=== PATIENT | female | born 1950 | race Caucasian/White ===

== ENCOUNTER → 2017-10-22 09:37 | Outpatient (CLI) | payer MEDICARE, OTHER, SELFPAY ==
[2017-10-15 11:41] VITALS: TEMP 36.3
[2017-10-22 10:02] LABS: Hematocrit 52.3 % (36-46)
[2017-10-22 11:33] LABS: Zero Check Sebra Scale P
[2017-10-22 11:34] LABS: 585 Gram Check P; Amount Collected in g 585; Dizziness N; Postdiastolic BP 88; Postsystolic BP 127; Prediastolic 88; Presystolic 144; Pulse 56; Site of phlebotomy LAC; Swelling N; Therapeutic Phleb Comment NO COMMENT
== END ==
PROVIDERS: PCP Family Medicine; Visit Provider Internal Medicine Hematology & Oncology
DX: D45 Polycythemia vera (principal)
CPT/HCPCS: 36415; 85014; 85018; 99195

== ENCOUNTER → 2017-10-29 09:48 | Outpatient (CLI) | payer MEDICARE, OTHER, SELFPAY ==
[2017-10-29 10:19] LABS: Add Manual Diff / Slide Review NO; Basophils Percent Auto 0.9 % (0-2); Eosinophils Percent Auto 4.1 % (2-4); Hematocrit 50.5 % (36-46); Hemoglobin 16.7 g/dL (12.0-16.0); Lymphocytes Percent Auto 13.2 % (25-40); Mean Corpuscular HGB Conc 33.1 % (30-36); Mean Corpuscular Hemoglobin 31.2 PG (26-34); Mean Corpuscular Volume 94.2 fL (80-100); Monocytes Percent Auto 3.7 % (3-14); Neutrophils Absolute Auto 8100 /uL (3000-5900); Neutrophils Percent Auto 78.1 % (50-75); Platelet Count 702 X10^3/uL (150-400); Red Blood Cell Count 5.36 X10^6/uL (4.0-5.2); Red Cell Distribution Width 16.4 % (11.6-14.8); White Blood Cell Count 10.4 X10^3/uL (4.5-11.0)
[2017-10-29 11:13] LABS: 585 Gram Check P; Amount Collected in g 585; Dizziness NO; Postdiastolic BP 72; Postsystolic BP 98; Prediastolic 75; Presystolic 120; Pulse 64; Site of phlebotomy RAC; Swelling NO; Therapeutic Phleb Comment NO COMMENT; Zero Check Sebra Scale P
[2017-10-29 11:51] LABS: Platelet Morphology Comment OCC GIANT PLATELETS
== END ==
PROVIDERS: PCP Family Medicine; Visit Provider Internal Medicine Hematology & Oncology
DX: D45 Polycythemia vera (principal)
CPT/HCPCS: 36415; 85025; 99195

== ENCOUNTER → 2017-11-12 09:31 | Outpatient (CLI) | payer MEDICARE, OTHER, SELFPAY ==
[2017-11-12 09:54] LABS: Add Manual Diff / Slide Review NO; Basophils Percent Auto 0.7 % (0-2); Eosinophils Percent Auto 4.3 % (2-4); Hematocrit 50.6 % (36-46); Hemoglobin 16.3 g/dL (12.0-16.0); Lymphocytes Percent Auto 13.3 % (25-40); Mean Corpuscular HGB Conc 32.3 % (30-36); Mean Corpuscular Hemoglobin 29.3 PG (26-34); Mean Corpuscular Volume 90.6 fL (80-100); Monocytes Percent Auto 4.4 % (3-14); Neutrophils Absolute Auto 8200 /uL (3000-5900); Neutrophils Percent Auto 77.3 % (50-75); Platelet Count 709 X10^3/uL (150-400); Red Blood Cell Count 5.58 X10^6/uL (4.0-5.2); Red Cell Distribution Width 18.6 % (11.6-14.8); White Blood Cell Count 10.6 X10^3/uL (4.5-11.0)
[2017-11-12 10:51] LABS: 585 Gram Check P; Zero Check Sebra Scale P
[2017-11-12 10:52] LABS: Amount Collected in g 585; Dizziness NO; Postdiastolic BP 86; Postsystolic BP 135; Prediastolic 83; Presystolic 123; Pulse 72; Site of phlebotomy LAC; Swelling NO; Therapeutic Phleb Comment NO COMMENT
[2017-11-12 11:40] LABS: Alanine Aminotransferase 33 IU/L (9-52); Albumin 4.3 g/dL (3.5-5.0); Albumin Globulin Ratio 1.8 (1.0-2.8); Alkaline Phosphatase 104 U/L (38-126); Aspartate Aminotransferase 34 IU/L (14-36); BUN Creatinine Ratio 18.8 (6-22); Bilirubin Total 0.7 mg/dL (0.2-1.3); Blood Urea Nitrogen 15 mg/dL (7-17); Carbon Dioxide 29 mmol/L (22-32); Chloride 98 mmol/L (98-107); Estimated Glomerular Filt Rate > 60.0 mL/min (>60); Globulin 2.4 g/dL (1.7-4.1); Glucose 84 mg/dL (80-110); HEMOLYSIS 16 (0-50); Lactate Dehydrogenase 693 U/L (313-618); Sodium 138 mmol/L (137-145); Total Protein 6.7 g/dL (6.3-8.2)
[2017-11-12 11:58] LABS: Potassium 5.7 mmol/L (3.4-5.1)
== END ==
PROVIDERS: PCP Family Medicine; Visit Provider Internal Medicine Hematology & Oncology
DX: D75.1 Secondary polycythemia (principal)
CPT/HCPCS: 36415; 80053; 83615; 85025; 99195

== ENCOUNTER → 2017-11-27 09:35 | Outpatient (CLI) | payer MEDICARE, OTHER, SELFPAY ==
[2017-11-27 10:06] LABS: Add Manual Diff / Slide Review NO; Basophils Percent Auto 1.4 % (0-2); Eosinophils Percent Auto 4.9 % (2-4); Hematocrit 50.9 % (36-46); Hemoglobin 15.8 g/dL (12.0-16.0); Lymphocytes Percent Auto 13.6 % (25-40); Mean Corpuscular HGB Conc 31.1 % (30-36); Mean Corpuscular Hemoglobin 27.4 PG (26-34); Monocytes Percent Auto 3.9 % (3-14); Neutrophils Absolute Auto 8900 /uL (3000-5900); Neutrophils Percent Auto 76.2 % (50-75); Platelet Count 811 X10^3/uL (150-400); Red Blood Cell Count 5.79 X10^6/uL (4.0-5.2); Red Cell Distribution Width 20.2 % (11.6-14.8); White Blood Cell Count 11.6 X10^3/uL (4.5-11.0)
[2017-11-27 10:32] LABS: Anisocytosis 2+; Hypochromasia 2+
[2017-11-27 10:44] LABS: 585 Gram Check PASS; Zero Check Sebra Scale PASS
[2017-11-27 10:45] LABS: Amount Collected in g 585 GRAM; Dizziness NO; Postdiastolic BP 68; Postsystolic BP 109; Prediastolic 74; Presystolic 112; Pulse 70; Site of phlebotomy RAC; Swelling NO; Therapeutic Phleb Comment NO COMMENT
--- NOTE | 2017-12-05 10:44 | ONC.NAV ---
Description: Railroad Activity: Completed a medical priority boarding pass for pt, emailed her the patient copy.
== END ==
PROVIDERS: PCP Family Medicine; Visit Provider Internal Medicine Hematology & Oncology
DX: D45 Polycythemia vera (principal)
CPT/HCPCS: 36415; 85025; 99195

== ENCOUNTER → 2017-12-10 09:24 | Outpatient (CLI) | payer MEDICARE, OTHER, SELFPAY ==
[2017-12-10 09:51] LABS: Add Manual Diff / Slide Review NO; Basophils Percent Auto 1.1 % (0-2); Eosinophils Percent Auto 3.7 % (2-4); Hematocrit 46.3 % (36-46); Hemoglobin 14.5 g/dL (12.0-16.0); Lymphocytes Percent Auto 13.8 % (25-40); Mean Corpuscular HGB Conc 31.2 % (30-36); Mean Corpuscular Hemoglobin 26.4 PG (26-34); Mean Corpuscular Volume 84.7 fL (80-100); Monocytes Percent Auto 4.3 % (3-14); Neutrophils Absolute Auto 7500 /uL (3000-5900); Neutrophils Percent Auto 77.1 % (50-75); Platelet Count 455 X10^3/uL (150-400); Red Blood Cell Count 5.47 X10^6/uL (4.0-5.2); Red Cell Distribution Width 21.6 % (11.6-14.8); White Blood Cell Count 9.7 X10^3/uL (4.5-11.0)
[2017-12-10 10:13] LABS: Anisocytosis 2+
[2017-12-10 10:14] LABS: Poikilocytosis 1+
[2017-12-10 10:18] LABS: Alanine Aminotransferase 31 IU/L (9-52); Albumin 4.4 g/dL (3.5-5.0); Albumin Globulin Ratio 1.7 (1.0-2.8); Alkaline Phosphatase 88 U/L (38-126); Aspartate Aminotransferase 32 IU/L (14-36); BUN Creatinine Ratio 18.8 (6-22); Bilirubin Total 0.8 mg/dL (0.2-1.3); Blood Urea Nitrogen 15 mg/dL (7-17); Calcium 9.5 mg/dL (8.4-10.2); Carbon Dioxide 27 mmol/L (22-32); Chloride 102 mmol/L (98-107); Estimated Glomerular Filt Rate > 60.0 mL/min (>60); Globulin 2.6 g/dL (1.7-4.1); Glucose 94 mg/dL (80-110); HEMOLYSIS < 15 (0-50); Potassium 4.5 mmol/L (3.4-5.1); Sodium 138 mmol/L (137-145)
[2017-12-10 10:29] LABS: 585 Gram Check PASS; Amount Collected in g 585 GRAM; Dizziness NO; Postdiastolic BP 78; Postsystolic BP 120; Prediastolic 83; Presystolic 122; Pulse 76; Site of phlebotomy LEFT AC; Swelling NO; Therapeutic Phleb Comment NO COMMENT; Zero Check Sebra Scale PASS
== END ==
PROVIDERS: PCP Family Medicine; Visit Provider Internal Medicine Hematology & Oncology
DX: D75.1 Secondary polycythemia (principal); D45 Polycythemia vera
CPT/HCPCS: 36415; 80053; 83002; 85025; 99195

== ENCOUNTER → 2017-12-24 09:11 | Outpatient (CLI) | payer MEDICARE, OTHER, SELFPAY ==
[2017-12-24 09:47] LABS: Add Manual Diff / Slide Review NO; Basophils Percent Auto 1.9 % (0-2); Eosinophils Percent Auto 3.4 % (2-4); Hematocrit 44.1 % (36-46); Hemoglobin 13.7 g/dL (12.0-16.0); Lymphocytes Percent Auto 13.5 % (25-40); Mean Corpuscular Hemoglobin 25.7 PG (26-34); Monocytes Percent Auto 2.4 % (3-14); Neutrophils Absolute Auto 8100 /uL (3000-5900); Neutrophils Percent Auto 78.8 % (50-75); Platelet Count 305 X10^3/uL (150-400); Red Blood Cell Count 5.31 X10^6/uL (4.0-5.2); Red Cell Distribution Width 21.7 % (11.6-14.8); White Blood Cell Count 10.3 X10^3/uL (4.5-11.0)
[2017-12-24 10:48] LABS: Anisocytosis 2+; Hypochromasia 1+
[2017-12-24 12:24] LABS: 585 Gram Check PASS; Amount Collected in g 585 GRAM; Dizziness NO; Postdiastolic BP 75; Postsystolic BP 117; Prediastolic 88; Presystolic 126; Pulse 75; Site of phlebotomy RIGHT AC; Swelling NO; Therapeutic Phleb Comment NO COMMENT; Zero Check Sebra Scale PASS
== END ==
PROVIDERS: PCP Family Medicine; Visit Provider Internal Medicine Hematology & Oncology
DX: D45 Polycythemia vera (principal)
CPT/HCPCS: 36415; 85025; 99195

== ENCOUNTER → 2018-01-07 09:20 | Outpatient (CLI) | payer MEDICARE, OTHER, SELFPAY ==
[2018-01-07 09:48] LABS: Add Manual Diff / Slide Review NO; Basophils Percent Auto 1.1 % (0-2); Hematocrit 41.5 % (36-46); Hemoglobin 12.9 g/dL (12.0-16.0); Lymphocytes Percent Auto 16.3 % (25-40); Mean Corpuscular HGB Conc 31.2 % (30-36); Mean Corpuscular Hemoglobin 25.6 PG (26-34); Monocytes Percent Auto 4.5 % (3-14); Neutrophils Absolute Auto 7400 /uL (3000-5900); Neutrophils Percent Auto 75.1 % (50-75); Platelet Count 421 X10^3/uL (150-400); Red Blood Cell Count 5.06 X10^6/uL (4.0-5.2); Red Cell Distribution Width 22.1 % (11.6-14.8); White Blood Cell Count 9.9 X10^3/uL (4.5-11.0)
[2018-01-07 10:07] LABS: Anisocytosis 2+
[2018-01-07 11:03] LABS: Alanine Aminotransferase 27 IU/L (9-52); Albumin 4.3 g/dL (3.5-5.0); Albumin Globulin Ratio 1.7 (1.0-2.8); Alkaline Phosphatase 80 U/L (38-126); Aspartate Aminotransferase 28 IU/L (14-36); BUN Creatinine Ratio 16.3 (6-22); Bilirubin Total 0.6 mg/dL (0.2-1.3); Blood Urea Nitrogen 13 mg/dL (7-17); Calcium 9.4 mg/dL (8.4-10.2); Carbon Dioxide 30 mmol/L (22-32); Chloride 101 mmol/L (98-107); Estimated Glomerular Filt Rate > 60.0 mL/min (>60); Globulin 2.6 g/dL (1.7-4.1); Glucose 100 mg/dL (80-110); HEMOLYSIS < 15 (0-50); Lactate Dehydrogenase 424 U/L (313-618); Potassium 4.1 mmol/L (3.4-5.1); Sodium 139 mmol/L (137-145); Total Protein 6.9 g/dL (6.3-8.2)
[2018-01-07 11:38] LABS: Ferritin 7.1 ng/mL (11.1-264)
== END ==
PROVIDERS: PCP Family Medicine; Visit Provider Internal Medicine Hematology & Oncology
DX: D45 Polycythemia vera (principal)
CPT/HCPCS: 36415; 80053; 82728; 83615; 85025

== ENCOUNTER → 2018-01-22 09:24 | Outpatient (CLI) | payer MEDICARE, OTHER, SELFPAY ==
[2018-01-22 09:39] LABS: Add Manual Diff / Slide Review NO; Basophils Percent Auto 1.1 % (0-2); Eosinophils Percent Auto 2.7 % (2-4); Hematocrit 42.2 % (36-46); Hemoglobin 13.3 g/dL (12.0-16.0); Lymphocytes Percent Auto 19.4 % (25-40); Mean Corpuscular HGB Conc 31.6 % (30-36); Mean Corpuscular Hemoglobin 26.2 PG (26-34); Monocytes Percent Auto 5.1 % (3-14); Neutrophils Absolute Auto 5900 /uL (3000-5900); Neutrophils Percent Auto 71.7 % (50-75); Platelet Count 306 X10^3/uL (150-400); Red Blood Cell Count 5.09 X10^6/uL (4.0-5.2); Red Cell Distribution Width 25.7 % (11.6-14.8); White Blood Cell Count 8.3 X10^3/uL (4.5-11.0)
[2018-01-22 10:06] LABS: Anisocytosis 2+
== END ==
PROVIDERS: PCP Family Medicine; Visit Provider Internal Medicine Hematology & Oncology
DX: D45 Polycythemia vera (principal)
CPT/HCPCS: 36415; 85025

== ENCOUNTER → 2018-02-05 09:22 | Outpatient (CLI) | payer MEDICARE, OTHER, SELFPAY ==
[2018-02-05 09:50] LABS: Add Manual Diff / Slide Review NO; Basophils Percent Auto 0.9 % (0-2); Eosinophils Percent Auto 2.9 % (2-4); Hemoglobin 13.7 g/dL (12.0-16.0); Lymphocytes Percent Auto 20.6 % (25-40); Mean Corpuscular HGB Conc 31.9 % (30-36); Mean Corpuscular Hemoglobin 26.5 PG (26-34); Mean Corpuscular Volume 83.2 fL (80-100); Monocytes Percent Auto 4.8 % (3-14); Neutrophils Absolute Auto 4700 /uL (3000-5900); Neutrophils Percent Auto 70.8 % (50-75); Platelet Count 635 X10^3/uL (150-400); Red Blood Cell Count 5.17 X10^6/uL (4.0-5.2); Red Cell Distribution Width 28.3 % (11.6-14.8); White Blood Cell Count 6.6 X10^3/uL (4.5-11.0)
[2018-02-05 10:05] LABS: Alanine Aminotransferase 27 IU/L (9-52); Albumin 4.5 g/dL (3.5-5.0); Albumin Globulin Ratio 1.7 (1.0-2.8); Alkaline Phosphatase 73 U/L (38-126); Aspartate Aminotransferase 31 IU/L (14-36); BUN Creatinine Ratio 17.1 (6-22); Bilirubin Total 0.6 mg/dL (0.2-1.3); Blood Urea Nitrogen 12 mg/dL (7-17); Calcium 9.5 mg/dL (8.4-10.2); Carbon Dioxide 30 mmol/L (22-32); Chloride 100 mmol/L (98-107); Estimated Glomerular Filt Rate > 60.0 mL/min (>60); Globulin 2.7 g/dL (1.7-4.1); Glucose 106 mg/dL (80-110); HEMOLYSIS < 15 (0-50); Lactate Dehydrogenase 467 U/L (313-618); Potassium 4.1 mmol/L (3.4-5.1); Sodium 139 mmol/L (137-145); Total Protein 7.2 g/dL (6.3-8.2)
[2018-02-05 10:20] LABS: Anisocytosis 2+; Poikilocytosis 1+
== END ==
PROVIDERS: PCP Family Medicine; Visit Provider Internal Medicine Hematology & Oncology
DX: D45 Polycythemia vera (principal)
CPT/HCPCS: 36415; 80053; 83615; 85025

== ENCOUNTER → 2018-02-19 09:54 | Outpatient (CLI) | payer MEDICARE, OTHER, SELFPAY ==
[2018-02-19 11:54] LABS: Lactate Dehydrogenase 574 U/L (313-618)
[2018-02-19 12:59] LABS: 585 Gram Check PASS; Amount Collected in g 585 GRAM; Dizziness NO; Postdiastolic BP 87; Postsystolic BP 133; Prediastolic 87; Presystolic 143; Pulse 59; Site of phlebotomy RIGHT AC; Swelling NO; Therapeutic Phleb Comment NO COMMENT; Zero Check Sebra Scale PASS
== END ==
PROVIDERS: PCP Family Medicine; Visit Provider Internal Medicine Hematology & Oncology
DX: D45 Polycythemia vera (principal)
CPT/HCPCS: 83615; 99195

== ENCOUNTER → 2018-03-12 14:25 | Outpatient (CLI) | payer MEDICARE, OTHER, SELFPAY ==
[2018-03-12 14:46] LABS: Add Manual Diff / Slide Review SLIDE REVIEW; Basophils Percent Auto 1.4 % (0-2); Hematocrit 41.5 % (36-46); Lymphocytes Percent Auto 17.9 % (25-40); Mean Corpuscular HGB Conc 31.2 % (30-36); Mean Corpuscular Hemoglobin 27.1 PG (26-34); Mean Corpuscular Volume 86.6 fL (80-100); Monocytes Percent Auto 4.6 % (3-14); Neutrophils Absolute Auto 6200 /uL (3000-5900); Neutrophils Percent Auto 74.1 % (50-75); Platelet Count 358 X10^3/uL (150-400); Red Blood Cell Count 4.79 X10^6/uL (4.0-5.2); Red Cell Distribution Width 27.7 % (11.6-14.8); White Blood Cell Count 8.4 X10^3/uL (4.5-11.0)
[2018-03-12 15:08] LABS: Anisocytosis 3+; Polychromasia 2+
[2018-03-12 15:09] LABS: Poikilocytosis 1+
== END ==
PROVIDERS: PCP Family Medicine; Visit Provider Internal Medicine Hematology & Oncology
DX: D45 Polycythemia vera (principal)
CPT/HCPCS: 36415; 85025

== ENCOUNTER → 2018-04-03 09:50 | Outpatient (CLI) | payer MEDICARE, OTHER, SELFPAY ==
[2018-04-03 10:41] LABS: 585 Gram Check PASS; Amount Collected in g 585 GRAM; Dizziness NO; Postdiastolic BP 73; Postsystolic BP 105; Prediastolic 63; Presystolic 103; Pulse 78; Site of phlebotomy RIGHT AC; Swelling NO; Therapeutic Phleb Comment NO COMMENT; Zero Check Sebra Scale PASS
[2018-04-03 11:33] LABS: Alanine Aminotransferase 25 IU/L (9-52); Albumin 4.4 g/dL (3.5-5.0); Albumin Globulin Ratio 1.6 (1.0-2.8); Alkaline Phosphatase 69 U/L (38-126); Aspartate Aminotransferase 41 IU/L (14-36); BUN Creatinine Ratio 17.5 (6-22); Bilirubin Total 0.4 mg/dL (0.2-1.3); Blood Urea Nitrogen 14 mg/dL (7-17); Carbon Dioxide 29 mmol/L (22-32); Chloride 102 mmol/L (98-107); Estimated Glomerular Filt Rate > 60.0 mL/min (>60); Globulin 2.8 g/dL (1.7-4.1); Glucose 110 mg/dL (80-110); HEMOLYSIS < 15 (0-50); Potassium 4.3 mmol/L (3.4-5.1); Sodium 141 mmol/L (137-145); Total Protein 7.2 g/dL (6.3-8.2)
--- NOTE | 2018-06-17 14:20 | ONC.NAV ---
Description: Updated Medical [employer]ing [employer] Activity: Scanned and emailed patient a renewal pass for 90-days, per her request.
== END ==
PROVIDERS: PCP Family Medicine; Visit Provider Internal Medicine Hematology & Oncology
DX: D45 Polycythemia vera (principal)
CPT/HCPCS: 80053; 99195

== ENCOUNTER 2018-04-03 13:00 | Oncology outpatient (ONC) | payer MEDICARE, OTHER, SELFPAY ==
[2017-10-15 11:41] VITALS: BP 122/70; PULSE 58; RESP 18; TEMP 36.3
--- NOTE | 2017-10-22 11:14 | P.PNONC_ITS ---
Assessment and Plan - Time Spent with Patient Impression: 1. Polycythemia vera. Previous workup showed low erythropoietin level and positive JAK2 mutation, consistent with diagnosis of polycythemia vera. She presented in [place] on September 12, 2017 with hemoglobin 21.7, hematocrit 66.8, MCV 103.2, white cell 7700 and platelet count [id number]. Seen here in consultation by Dr. House in September 2017 and started on aspirin and therapeutic phlebotomy. She is tolerating treatment well and has completed 5 phlebotomies including today's. Hemogram today shows hemoglobin 17.0, hematocrit 52.3. I reviewed treatment plan and related issues with her as well as additional questions from her today. Offered encouragement to her. We will plan to continue with weekly phlebotomy and I would anticipate switching to every 2 week , then every 4 week pending lab work, symptoms and clinical course. She also has consultation in early November at [facility]. Continue daily aspirin and I encouraged her to call back if any new symptoms or concerns arise. Plan: 1. Continue therapeutic phlebotomy every 1-2 weeks as discussed. 2. Hemogram weekly. 3. Information on hydroxyurea. 4. Follow up with other providers as planned. 5. Consultation at [facility] pending 11/20/2017. 6. Return to clinic with provider in 2-3 weeks. 7. CBC, CMP, LDH prior to the visit. Dictated by Gary Escoto MD Hematology and Medical Oncology PN -Subjective Interval history: Hematology/oncology progress note Name: Silvia Malin Date of : 1950 Date of Visit: October 22, 2017 Primary care provider: Identification: Ms. Malin is a 67-year-old woman with polycythemia. Interval history: She returns to clinic today for phlebotomy and follow-up. Tolerating the procedure fairly well, this is her 5th 1 she says. She does feel a little foggy afterwards but has not fainted or had other problems. She otherwise feels okay. No recent symptoms to suggest TIA or stroke. No swelling in the arms or legs, chest pain, cough or dyspnea. Appetite and energy level are stable and she is otherwise feeling her usual self. No rash, bruising. No vasomotor symptoms. - Additional ROS Additional ROS: Review of systems: General: No fever, night sweats or weight loss. HEENT: No vision change, epistaxis or dysphagia. Respiratory: No cough or dyspnea. Cardiac: No chest pain, PND or orthopnea. GI: As above. : Negative. Musculoskeletal: As above. Neurologic: Negative. No new cognitive symptoms or focal weakness or numbness noted. Home Medications and Allergies Home Medications Medication Instructions Recorded Confirmed Type cholecalciferol (vitamin D3) 2,000 unit PO DAILY 10/15/17 10/15/17 History [Vitamin D3] magnesium 200 mg PO DAILY 10/15/17 10/15/17 History Adrenalin 1 BID 10/22/17 History Allergies Allergy/AdvReac Type Severity Reaction Status Date / Time No Known Drug Allergies Allergy Verified 10/09/17 14:04 Exam Vital signs: Last Vital Signs Temp 97.3 F L 10/15/17 11:41 Pulse 58 L 10/15/17 11:41 Resp 18 10/15/17 11:41 BP 122/70 H 10/15/17 11:41 - Constitutional positive no acute distress, positive average body habitus, positive cooperative - Routine HEENT Exam Head: Present: normocephalic, atraumatic. Absent: scalp tenderness, facial swelling Eye: Present: EOMI, PERRL, conjunctivae pink. Absent: conjunctival icterus ENT: Present: mucous membranes moist - Routine Neck Exam Present: supple, full ROM. Absent: JVD - Routine Chest/Breast/Axilla Exam Chest wall exam standard: Absent: tenderness - Routine Respiratory Exam Present: Clear to auscultation bilaterally. Absent: accessory muscle use, rales , respiratory distress, rhonchi, wheezes, crackles - Routine Cardiovascular Exam Present: RRR, S1, S2. Absent: murmur, S3 - Routine Abdominal Exam Present: soft, normoactive bowel sounds - Routine Extremities Exam Absent: cyanosis, edema, joint swelling - Routine Neurological Exam Present: alert, oriented X3, moving all extremities, normal speech. Absent: abnormal gait - Routine Psychiatric Exam Present: normal affect, normal thought process, cooperative, good insight, good judgment
[2017-10-22 11:58] VITALS: BP 119/71; PULSE 60; RESP 15; TEMP 36.6; O2SAT 97
[2017-11-12 11:23] VITALS: BP 120/73; PULSE 69; RESP 15; TEMP 36.3; O2SAT 97
--- NOTE | 2017-11-12 11:32 | ONC.PN ---
Assessment and Plan - Time Spent with Patient Impression: 1. Polycythemia vera. Previous workup showed low erythropoietin level and positive JAK2 mutation, consistent with diagnosis of polycythemia vera. She presented in [place] on September 12, 2017 with hemoglobin 21.7, hematocrit 66.8, MCV 103.2, white cell 7700 and platelet count [id number]. Seen here in consultation by Dr. House in September 2017 and started on aspirin and therapeutic phlebotomy. She is tolerating treatment well and has completed 7 phlebotomies including today's. I I review today's lab results and treatment plan with her. She will return in 2 weeks for phlebotomy and every 2 weeks thereafter with further adjustments based on hemogram and clinical course. Tolerating treatment well so far. She will follow up in [place] on November 20 for consultation and return here to see me in 4 weeks. Offered encouragement to her and I reminded her to call with any questions or new concerns arise. Plan: 1. Continue therapeutic phlebotomy every 2 weeks as discussed. 2. Hemogram every 2 weeks. CMP in 4 weeks. 3. Information on hydroxyurea reviewed. 4. Follow up with other providers as planned. 5. Consultation at [facility] pending 11/20/2017. 6. Return to clinic in 4 weeks. 7. CBC, CMP, LDH prior to the visit. Dictated by Gary Escoto MD Hematology and Medical Oncology PN -Subjective Interval history: Hematology/oncology progress note Name: Silvia Malin Date of : 1950 Date of Visit: October 22, 2017 Primary care provider: Identification: Ms. Malin is a 67-year-old woman with polycythemia. Interval history: She returns to clinic today for phlebotomy and follow-up. Tolerating the procedure fairly well, this is her 7th she says. She completed her 7 phlebotomy this morning. Tolerated it fairly well. She arranges for her to drive for since she feels a bit foggy afterwards. No other problems. Nothing new to report she says. She denies fever, night sweats or other vasomotor symptoms. No bruising, bleeding. She is taking daily aspirin. She received and read the information on hydroxyurea. She plans to continue with phlebotomy at this time. She also has an appointment next week at [facility]. - Additional ROS Additional ROS: REVIEW OF SYSTEMS: GENERAL: NO FEVER, NIGHT SWEATS OR WEIGHT LOSS. HEENT: NO HEADACHES, VISION CHANGE, EPISTAXIS OR DYSPHAGIA. RESPIRATORY: NO COUGH OR DYSPNEA. CARDIAC: NO CHEST PAIN, PND OR ORTHOPNEA. GI: NEGATIVE. : STABLE. MUSCULOSKELETAL: ABOVE. NEUROLOGIC: NEGATIVE. Home Medications and Allergies Home Medications Medication Instructions Recorded Confirmed Type cholecalciferol (vitamin D3) 2,000 unit PO DAILY 10/15/17 11/12/17 History [Vitamin D3] magnesium 200 mg PO DAILY 10/15/17 11/12/17 History Adrenalin 1 BID 10/22/17 History Allergies Allergy/AdvReac Type Severity Reaction Status Date / Time No Known Drug Allergies Allergy Verified 10/09/17 14:04 Exam Vital signs: Last Vital Signs Temp 97.4 F L 11/12/17 11:23 Pulse 69 11/12/17 11:23 Resp 15 11/12/17 11:23 BP 120/73 11/12/17 11:23 Pulse Ox 97 11/12/17 11:23 - Constitutional positive no acute distress, positive average body habitus, positive cooperative - Routine HEENT Exam Head: Present: normocephalic, atraumatic Eye: Present: EOMI, PERRL. Absent: conjunctival icterus, periorbital ecchymosis ENT: Present: mucous membranes moist, oropharynx clear - Routine Neck Exam Present: supple - Routine Respiratory Exam Present: Clear to auscultation bilaterally. Absent: decreased breath sounds, rales, wheezes, crackles - Routine Cardiovascular Exam Present: RRR, S1, S2. Absent: murmur, S3 - Routine Abdominal Exam Present: soft, normoactive bowel sounds. Absent: tenderness, distended, organomegaly, mass Palpation/Percussion: Absent: splenomegaly - Routine Extremities Exam Absent: cyanosis, clubbing, edema - Routine Skin Exam Present: intact. Absent: cyanosis, erythema, jaundice, rash, ecchymosis - Routine Neurological Exam Present: alert, normal speech - Routine Psychiatric Exam Present: normal affect, normal thought process, cooperative, good judgment
--- NOTE | 2017-11-12 11:46 | P.PNONC_ITS ---
Assessment and Plan - Time Spent with Patient Impression: 1. Polycythemia vera. Previous workup showed low erythropoietin level and positive JAK2 mutation, consistent with diagnosis of polycythemia vera. She presented in [place] on September 12, 2017 with hemoglobin 21.7, hematocrit 66.8, MCV 103.2, white cell 7700 and platelet count [id number]. Seen here in consultation by Dr. House in September 2017 and started on aspirin and therapeutic phlebotomy. She is tolerating treatment well and has completed 7 phlebotomies including today's. I I review today's lab results and treatment plan with her. She will return in 2 weeks for phlebotomy and every 2 weeks thereafter with further adjustments based on hemogram and clinical course. Tolerating treatment well so far. She will follow up in [place] on November 20 for consultation and return here to see me in 4 weeks. Offered encouragement to her and I reminded her to call with any questions or new concerns arise. Plan: 1. Continue therapeutic phlebotomy every 2 weeks as discussed. 2. Hemogram every 2 weeks. CMP in 4 weeks. 3. Information on hydroxyurea reviewed. 4. Follow up with other providers as planned. 5. Consultation at [facility] pending 11/20/2017. 6. Return to clinic in 4 weeks. 7. CBC, CMP, LDH prior to the visit. Dictated by Gary Escoto MD Hematology and Medical Oncology PN -Subjective Interval history: Hematology/oncology progress note Name: Silvia Malin Date of : 1950 Date of Visit: October 22, 2017 Primary care provider: Identification: Ms. Malin is a 67-year-old woman with polycythemia. Interval history: She returns to clinic today for phlebotomy and follow-up. Tolerating the procedure fairly well, this is her 7th she says. She completed her 7 phlebotomy this morning. Tolerated it fairly well. She arranges for her to drive for since she feels a bit foggy afterwards. No other problems. Nothing new to report she says. She denies fever, night sweats or other vasomotor symptoms. No bruising, bleeding. She is taking daily aspirin. She received and read the information on hydroxyurea. She plans to continue with phlebotomy at this time. She also has an appointment next week at [facility]. - Additional ROS Additional ROS: REVIEW OF SYSTEMS: GENERAL: NO FEVER, NIGHT SWEATS OR WEIGHT LOSS. HEENT: NO HEADACHES, VISION CHANGE, EPISTAXIS OR DYSPHAGIA. RESPIRATORY: NO COUGH OR DYSPNEA. CARDIAC: NO CHEST PAIN, PND OR ORTHOPNEA. GI: NEGATIVE. : STABLE. MUSCULOSKELETAL : ABOVE. NEUROLOGIC: NEGATIVE. Home Medications and Allergies Home Medications Medication Instructions Recorded Confirmed Type cholecalciferol (vitamin D3) 2,000 unit PO DAILY 10/15/17 11/12/17 History [Vitamin D3] magnesium 200 mg PO DAILY 10/15/17 11/12/17 History Adrenalin 1 BID 10/22/17 History Allergies Allergy/AdvReac Type Severity Reaction Status Date / Time No Known Drug Allergies Allergy Verified 10/09/17 14:04 Exam Vital signs: Last Vital Signs Temp 97.4 F L 11/12/17 11:23 Pulse 69 11/12/17 11:23 Resp 15 11/12/17 11:23 BP 120/73 11/12/17 11:23 Pulse Ox 97 11/12/17 11:23 - Constitutional positive no acute distress, positive average body habitus, positive cooperative - Routine HEENT Exam Head: Present: normocephalic, atraumatic Eye: Present: EOMI, PERRL. Absent: conjunctival icterus, periorbital ecchymosis ENT: Present: mucous membranes moist, oropharynx clear - Routine Neck Exam Present: supple - Routine Respiratory Exam Present: Clear to auscultation bilaterally. Absent: decreased breath sounds, rales, wheezes, crackles - Routine Cardiovascular Exam Present: RRR, S1, S2. Absent: murmur, S3 - Routine Abdominal Exam Present: soft, normoactive bowel sounds. Absent: tenderness, distended, organomegaly, mass Palpation/Percussion: Absent: splenomegaly - Routine Extremities Exam Absent: cyanosis, clubbing, edema - Routine Skin Exam Present: intact. Absent: cyanosis, erythema, jaundice, rash, ecchymosis - Routine Neurological Exam Present: alert, normal speech - Routine Psychiatric Exam Present: normal affect, normal thought process, cooperative, good judgment
[2017-12-10 11:33] VITALS: BP 120/83; PULSE 72; RESP 15; TEMP 36.8; O2SAT 100
--- NOTE | 2017-12-10 11:35 | ONC.PN ---
Assessment and Plan - Time Spent with Patient IMPRESSION: 1. Polycythemia vera. 2. Thrombocytosis. She continues to tolerate every 2 week phlebotomy, starting September 2017. Started hydroxyurea 500 mg daily November 26, 2017. Continues on daily aspirin. She presented in [place] on September 12, 2017 with hemoglobin 21.7, hematocrit 66.8, MCV 103.2, white cell 7700 and platelet count [id number]. Seen here in consultation by Dr. House in September 2017 and started on aspirin and therapeutic phlebotomy. Previous workup showed low erythropoietin level and positive JAK2 mutation, consistent with diagnosis of polycythemia vera. She is tolerating treatment well and has no new concerns at this time. We reviewed treatment plan and timing for upcoming phlebotomies, adjusted based on counts and symptoms. We will check serum ferritin to see if this may be contributing to a component of secondary thrombocytosis. PLAN: 1. Continue therapeutic phlebotomy every 2 weeks with adjustments as discussed. 2. Hydroxyurea 500 mg daily. Started November 26, 2017. 3. Antiemetics if needed. 4. Monitor symptoms and call back as needed. 5. Return appointment in 4 weeks. 6. CBC, CMP, LDH prior to the visit. Serum ferritin. 7. Continue daily aspirin. DICTATED BY JANUSZ RYAN MD MEDICAL ONCOLOGY AND HEMATOLOGY PN -Subjective Interval history: Hematology/oncology progress note Name: Silvia Malin Date of : 1950 Date of Visit: December 10, 2017 Primary care provider: Identification: Ms. Malin is a 67-year-old woman with polycythemia. Interval history: She returns to clinic today for phlebotomy and follow-up. She continues to tolerate phlebotomy without apparent difficulty. She denies any new symptoms. No fever, night sweats or new vasomotor symptoms. No recent symptoms of TIA or stroke. Appetite and energy level are stable. No cough, dyspnea, abdominal discomfort, bloating or early satiety. No bruising, rash, headache or new neurologic symptoms. She was seen 2 weeks ago in consultation at [facility]. Started on additional treatment with hydroxyurea at that time and is taking 500 mg daily. We had recommended same treatment to her previously but she had declined to start hydroxyurea initially. She also continues on aspirin. - Additional ROS Additional ROS: Review of systems: General: No fever, chills or night sweats. Skin: No recent bruising or rash. HEENT: No headaches, vision change or epistaxis. Respiratory: Negative. Cardiac: No chest pain, PND or orthopnea. GI: Negative. : No flank pain or dysuria. Musculoskeletal: Otherwise negative. Neurologic: Negative. Home Medications and Allergies Home Medications Medication Instructions Recorded Confirmed Type cholecalciferol (vitamin D3) 2,000 unit PO DAILY 10/15/17 12/10/17 History [Vitamin D3] magnesium 200 mg PO DAILY 10/15/17 12/10/17 History Adrenalin 1 BID 10/22/17 History hydroxyurea 500 mg PO DAILY #30 cap 12/10/17 Rx Allergies Allergy/AdvReac Type Severity Reaction Status Date / Time No Known Drug Allergies Allergy Verified 10/09/17 14:04 Exam Vital signs: Last Vital Signs Temp 97.4 F L 11/12/17 11:23 Pulse 69 11/12/17 11:23 Resp 15 11/12/17 11:23 BP 120/73 11/12/17 11:23 Pulse Ox 97 11/12/17 11:23 - Constitutional positive no acute distress, positive average body habitus, positive cooperative - Routine HEENT Exam Head: Present: normocephalic, atraumatic Eye: Present: EOMI, PERRL. Absent: conjunctival icterus, scleral injection, periorbital tenderness ENT: Present: mucous membranes moist, oropharynx clear - Routine Neck Exam Present: supple. Absent: lymphadenopathy - Routine Respiratory Exam Present: Clear to auscultation bilaterally. Absent: prolonged expiratory phase, rales, wheezes - Routine Cardiovascular Exam Present: RRR, S1, S2. Absent: murmur, S3 - Routine Abdominal Exam Present: soft, normoactive bowel sounds. Absent: organomegaly Palpation/Percussion: Absent: hepatomegaly - Routine Extremities Exam Absent: cyanosis, clubbing, edema - Routine Back/Spine Exam Back/Spine: Absent: CVA tenderness, vertebral tenderness, erythema, warmth - Routine Skin Exam Present: intact. Absent: cyanosis, erythema, jaundice, rash, ecchymosis - Routine Neurological Exam Present: alert, oriented X3, moving all extremities, normal speech - Routine Psychiatric Exam Present: normal affect, normal thought process, cooperative, good insight, good judgment
--- NOTE | 2017-12-10 11:53 | P.PNONC_ITS ---
Assessment and Plan - Time Spent with Patient IMPRESSION: 1. Polycythemia vera. 2. Thrombocytosis. She continues to tolerate every 2 week phlebotomy, starting September 2017. Started hydroxyurea 500 mg daily November 26, 2017. Continues on daily aspirin. She presented in [place] on September 12, 2017 with hemoglobin 21.7, hematocrit 66.8, MCV 103.2, white cell 7700 and platelet count [id number]. Seen here in consultation by Dr. House in September 2017 and started on aspirin and therapeutic phlebotomy. Previous workup showed low erythropoietin level and positive JAK2 mutation, consistent with diagnosis of polycythemia vera. She is tolerating treatment well and has no new concerns at this time. We reviewed treatment plan and timing for upcoming phlebotomies, adjusted based on counts and symptoms. We will check serum ferritin to see if this may be contributing to a component of secondary thrombocytosis. PLAN: 1. Continue therapeutic phlebotomy every 2 weeks with adjustments as discussed. 2. Hydroxyurea 500 mg daily. Started November 26, 2017. 3. Antiemetics if needed. 4. Monitor symptoms and call back as needed. 5. Return appointment in 4 weeks. 6. CBC, CMP, LDH prior to the visit. Serum ferritin. 7. Continue daily aspirin. DICTATED BY JANUSZ RYAN MD MEDICAL ONCOLOGY AND HEMATOLOGY PN -Subjective Interval history: Hematology/oncology progress note Name: Silvia Malin Date of : 1950 Date of Visit: December 10, 2017 Primary care provider: Identification: Ms. Malin is a 67-year-old woman with polycythemia. Interval history: She returns to clinic today for phlebotomy and follow-up. She continues to tolerate phlebotomy without apparent difficulty. She denies any new symptoms. No fever, night sweats or new vasomotor symptoms. No recent symptoms of TIA or stroke. Appetite and energy level are stable. No cough, dyspnea, abdominal discomfort, bloating or early satiety. No bruising, rash, headache or new neurologic symptoms. She was seen 2 weeks ago in consultation at [facility]. Started on additional treatment with hydroxyurea at that time and is taking 500 mg daily. We had recommended same treatment to her previously but she had declined to start hydroxyurea initially. She also continues on aspirin. - Additional ROS Additional ROS: Review of systems: General: No fever, chills or night sweats. Skin: No recent bruising or rash. HEENT: No headaches, vision change or epistaxis. Respiratory: Negative. Cardiac: No chest pain, PND or orthopnea. GI: Negative. : No flank pain or dysuria. Musculoskeletal: Otherwise negative. Neurologic: Negative. Home Medications and Allergies Home Medications Medication Instructions Recorded Confirmed Type cholecalciferol (vitamin D3) 2,000 unit PO DAILY 10/15/17 12/10/17 History [Vitamin D3] magnesium 200 mg PO DAILY 10/15/17 12/10/17 History Adrenalin 1 BID 10/22/17 History hydroxyurea 500 mg PO DAILY #30 cap 12/10/17 Rx Allergies Allergy/AdvReac Type Severity Reaction Status Date / Time No Known Drug Allergies Allergy Verified 10/09/17 14:04 Exam Vital signs: Last Vital Signs Temp 97.4 F L 11/12/17 11:23 Pulse 69 11/12/17 11:23 Resp 15 11/12/17 11:23 BP 120/73 11/12/17 11:23 Pulse Ox 97 11/12/17 11:23 - Constitutional positive no acute distress, positive average body habitus, positive cooperative - Routine HEENT Exam Head: Present: normocephalic, atraumatic Eye: Present: EOMI, PERRL. Absent: conjunctival icterus, scleral injection, periorbital tenderness ENT: Present: mucous membranes moist, oropharynx clear - Routine Neck Exam Present: supple. Absent: lymphadenopathy - Routine Respiratory Exam Present: Clear to auscultation bilaterally. Absent: prolonged expiratory phase , rales, wheezes - Routine Cardiovascular Exam Present: RRR, S1, S2. Absent: murmur, S3 - Routine Abdominal Exam Present: soft, normoactive bowel sounds. Absent: organomegaly Palpation/Percussion: Absent: hepatomegaly - Routine Extremities Exam Absent: cyanosis, clubbing, edema - Routine Back/Spine Exam Back/Spine: Absent: CVA tenderness, vertebral tenderness, erythema, warmth - Routine Skin Exam Present: intact. Absent: cyanosis, erythema, jaundice, rash, ecchymosis - Routine Neurological Exam Present: alert, oriented X3, moving all extremities, normal speech - Routine Psychiatric Exam Present: normal affect, normal thought process, cooperative, good insight, good judgment
[2017-12-11 09:50] LABS: Ferritin 8.3 ng/mL (11.1-264)
--- NOTE | 2018-01-07 15:04 | ONC.PN ---
Assessment and Plan - Time Spent with Patient IMPRESSION: 1. Polycythemia vera, JAK2 mutation positive diagnosed September 2017. 2. Thrombocytosis. She initiated treatment with phlebotomy every 2 weeks in September 2017. Started hydroxyurea 500 mg daily on November 26, 2017 and continues on daily aspirin. Initially presented in [place], [place] on September 12, 2017 with hemoglobin 21.7, hematocrit 66.8, MCV 103.2, white cell count 7700 and platelet count [id number]. Seen here in consultation by Dr. Sanjuana perez in September 2017. Previous workup showed low erythropoietin level and positive MARTY 2 mutation consistent with diagnosis of polycythemia vera. She also had consultation at [facility] in November. I reviewed the findings, lab results and treatment plan with her today. She is comfortable switching from every 2 to every 4 week phlebotomy pending counts. [place] whether to come to [place] for phlebotomy. We will schedule for phlebotomy in 2 weeks which will correspond to 4 weeks from her last one. PLAN: 1. Continue hydroxyurea 500 mg daily. Started November 26, 2017. 2. Compazine as needed. 3. Phlebotomy every 4 weeks pending counts. Most recent procedure 12/24/2017. 4. Continue low-dose aspirin. 5. Monitor for new symptoms and call back as needed. 6. CBC next week. 7. Return appointment in 6 weeks, corresponding to phlebotomy schedule. 8. CBC, CMP, LDH prior to the visit. DICTATED BY JANUSZ RYAN MD MEDICAL ONCOLOGY AND HEMATOLOGY PN -Subjective Interval history: Hematology/oncology progress note Name: Silvia Malin Date of : 1950 Date of Visit: January 07, 2018 Primary care provider: Identification: Ms. Malin is a 67-year-old woman with polycythemia. Interval history: She returns to clinic today for phlebotomy and follow-up. She continues Hydrea 500 mg daily and is tolerating this without nausea, mouth sores or skin rash. Most recent phlebotomy was 2 weeks ago. She was scheduled for 1 today however her hematocrit returned at 41.5 compared with 44.1 on 12/24/2017. She called the nurse energy trading analyst and arranged to recheck counts in a week she says. No new symptoms. No vasomotor symptoms, hot flashes, flushing or night sweats. Appetite and energy level are stable. No bleeding, bruising or rash, cough, dyspnea, headaches or new neurologic symptoms. - Patient Self-Reported Symptoms SR ears, nose, mouth, throat issues: Hoarseness - Additional ROS Additional ROS: Review of systems: General: Weight is stable. HEENT: No vision change or epistaxis. Respiratory: Negative. Cardiac: No chest pain, PND or orthopnea. GI: Negative. : Negative. Musculoskeletal: As above. Neurologic: Negative. Results - Labs Laboratory Last Values Ferritin 8.3 ng/mL (11.1-264) L 12/11/17 08:29 Home Medications and Allergies Home Medications Medication Instructions Recorded Confirmed Type cholecalciferol (vitamin D3) 2,000 unit PO DAILY 10/15/17 12/10/17 History [Vitamin D3] magnesium 200 mg PO DAILY 10/15/17 12/10/17 History Adrenalin 1 BID 10/22/17 History hydroxyurea 500 mg PO DAILY #30 cap 12/10/17 01/07/18 Rx Allergies Allergy/AdvReac Type Severity Reaction Status Date / Time No Known Drug Allergies Allergy Verified 10/09/17 14:04 Exam Vital signs: Last Vital Signs Temp 98.2 F 12/10/17 11:33 Pulse 72 12/10/17 11:33 Resp 15 12/10/17 11:33 BP 120/83 H 12/10/17 11:33 Pulse Ox 100 12/10/17 11:33 - Constitutional positive no acute distress, positive average body habitus, positive cooperative - Routine HEENT Exam Head: Present: normocephalic, atraumatic. Absent: cushingoid faces Eye: Present: EOMI, PERRL. Absent: conjunctival icterus, scleral injection, periorbital swelling ENT: Present: mucous membranes moist, oropharynx clear - Routine Neck Exam Present: full ROM. Absent: JVD, lymphadenopathy - Routine Chest/Breast/Axilla Exam Axillae: Absent: lymphadenopathy - Routine Respiratory Exam Present: Clear to auscultation bilaterally. Absent: accessory muscle use, rales, rhonchi, wheezes - Routine Cardiovascular Exam Present: RRR, S1, S2. Absent: murmur, S3 - Routine Abdominal Exam Present: soft, normoactive bowel sounds. Absent: tenderness, distended, organomegaly Palpation/Percussion: Absent: hepatomegaly, splenomegaly - Routine Extremities Exam Absent: cyanosis, clubbing, edema, joint swelling - Routine Skin Exam Present: intact. Absent: cyanosis, erythema, petechiae, jaundice, rash, ecchymosis - Routine Neurological Exam Present: alert, oriented X3, moving all extremities, normal speech. Absent: altered mental status, abnormal gait - Routine Psychiatric Exam Present: normal affect, normal thought process, cooperative, good judgment
[2018-01-07 15:15] VITALS: BP 127/78; PULSE 67; RESP 16; TEMP 36.7; O2SAT 99
--- NOTE | 2018-01-12 13:27 | ONC.NAV ---
Description: Financial Assistance Activity: Patient brought in a receipt for reimbursement from the [employer] for her accupuncture visits. Completed a check and sent it out in the mail for her today. No other needs identified at this time.
[2018-02-19 12:13] VITALS: BP 131/86; PULSE 76; RESP 18; TEMP 36.6; O2SAT 100
--- NOTE | 2018-02-19 12:21 | ONC.PN ---
Assessment and Plan (1) Polycythemia vera Today on 02/19/2018 patient underwent phlebotomy x1 unit. Patient's hematocrit level is 46%. Previous phlebotomy was on December 24, 2017. And I agree with Dr. Escoto that we will continue monthly CBC check. And if it is above 45% patient will need phlebotomies per clinical trial data. I talked with the patient also about the need for bone marrow aspiration and biopsy. Back several years, a bone marrow aspiration biopsy is not mandatory. However the most recent guidelines do recommend mandatory bone marrow aspiration biopsy to evaluate potential fibrosis of the bone marrow. Patient apparently has read a lot and she is also involved in a [employer] Blog. She is aware of the need for bone marrow aspiration biopsy. She is going to think about it and make decision in the future. Plan: 1. Cont Hydroxyurea 500 mg daily, started November 26, 2017 2. [facility]. 3. Phlebotomy if HCT > 45%. 4. Kody for any concerns or questions 5. Cont baby aspirin. 02/19/18 13:12 (2) Weight loss Since her previous visit, patient has had a significant weight loss of about 25 lb. Patient said that she is on deliberate diet control with low carbohydrate. Given the degree of weight loss, I will continue follow-up when she comes back in one month 02/19/18 13:07 PN -Subjective Interval history: INTERIM EVENTS This is a patient with polycythemia vera. Patient is currently taking Hydrea 500 mg once a day and with intermittent phlebotomy on as needed basis. Early this morning patient underwent a phlebotomy 1 unit due to her hematocrit of 46%. Previous phlebotomy happened about 2 months ago. Clinically patient reports occasional on and off scratchy throat, but no fever and no chills. Patient also reported mild thinning of the hair. She denies any rash or ulcers. Patient said that currently she is on diet for weight control. Patient has lost weight about 25 lb. No bleeding, bruising or rash, cough, dyspnea, headaches or new neurologic symptoms. ONCOLOGICAL HISTORY She presented on September 12, 2017 in [place] with hemoglobin level 21.7, hematocrit level 66.8%, MCV 103.2, white cell count 7.7 and platelet count [id number]. Workup showed low erythropoietin level at positive JAK2 mutation consistent with the diagnosis of polycythemia vera. She was therefore started on phlebotomy with a goal of keeping hematocrit level below 45%. - Patient Self-Reported Symptoms SR Constitution: Weight loss/gain (Patient has been on diet to control the week.) SR ears, nose, mouth, throat issues: Hoarseness (On and off scratchy throat.) SR Skin issues: Hair loss or scalp prob SR Gastrointestinal issues: Heartburn - Additional ROS All systems PM: reviewed and no additional remarkable complaints except as stated Results - Labs Laboratory Last Values Ferritin 8.3 ng/mL (11.1-264) L 12/11/17 08:29 Labs from February 18, 2018 WBC 6.73, RBC 5.21, hemoglobin 13.8, hematocrit 46%, MCV 89, platelet 344 sodium 137, potassium 4.4, chloride 100, carbon dioxide 24, anion gap 13, glucose 74, urea nitrogen 9, creatinine 0.65, total protein 6.6, albumin 4.4, total bilirubin 0.8, calcium 9.6, AST 21, ALP 74, ALT 13,. Home Medications and Allergies Home Medications Medication Instructions Recorded Confirmed Type cholecalciferol (vitamin D3) 2,000 unit PO DAILY 10/15/17 12/10/17 History [Vitamin D3] magnesium 200 mg PO DAILY 10/15/17 12/10/17 History hydroxyurea 500 mg PO DAILY #30 cap 12/10/17 01/07/18 Rx Allergies Allergy/AdvReac Type Severity Reaction Status Date / Time No Known Drug Allergies Allergy Verified 10/09/17 14:04 Exam Vital signs: Last Vital Signs Temp 97.8 F 02/19/18 12:13 Pulse 76 02/19/18 12:13 Resp 18 02/19/18 12:13 BP 131/86 02/19/18 12:13 Pulse Ox 100 02/19/18 12:13 - Constitutional positive no acute distress, positive average body habitus, positive cooperative - Routine HEENT Exam Head: Present: normocephalic, atraumatic Eye: Present: EOMI, PERRL, normal accommodation. Absent: conjunctival icterus ENT: Present: mucous membranes moist - Routine Neck Exam Present: supple. Absent: lymphadenopathy, thyromegaly - Routine Respiratory Exam Present: Clear to auscultation bilaterally. Absent: wheezes - Routine Cardiovascular Exam Present: RRR, S1, S2. Absent: murmur, gallop, rubs - Routine Abdominal Exam Present: soft, normoactive bowel sounds Palpation/Percussion: Absent: hepatomegaly, splenomegaly - Routine Extremities Exam Absent: cyanosis, clubbing, edema - Routine Neurological Exam Present: alert, oriented X3, CN II-XII intact, normal reflexes. Absent: sensory deficit, motor deficit - Routine Psychiatric Exam Present: normal affect, normal thought process, cooperative, good insight, good judgment
--- NOTE | 2018-02-19 12:42 | P.PNONC_ITS ---
Assessment and Plan (1) Polycythemia vera Today on 02/19/2018 patient underwent phlebotomy x1 unit. Patient's hematocrit level is 46%. Previous phlebotomy was on December 24, 2017. And I agree with Dr. Escoto that we will continue monthly CBC check. And if it is above 45% patient will need phlebotomies per clinical trial data. I talked with the patient also about the need for bone marrow aspiration and biopsy. Back several years, a bone marrow aspiration biopsy is not mandatory. However the most recent guidelines do recommend mandatory bone marrow aspiration biopsy to evaluate potential fibrosis of the bone marrow. Patient apparently has read a lot and she is also involved in a [employer] Blog. She is aware of the need for bone marrow aspiration biopsy. She is going to think about it and make decision in the future. Plan: 1. Cont Hydroxyurea 500 mg daily, started November 26, 2017 2. Monthly CBC[facility]CMP at [facility]. 3. Phlebotomy if HCT > 45%. 4. Kody for any concerns or questions 5. Cont baby aspirin. 02/19/18 13:12 (2) Weight loss Since her previous visit, patient has had a significant weight loss of about 25 lb. Patient said that she is on deliberate diet control with low carbohydrate. Given the degree of weight loss, I will continue follow-up when she comes back in one month 02/19/18 13:07 PN -Subjective Interval history: INTERIM EVENTS This is a patient with polycythemia vera. Patient is currently taking Hydrea 500 mg once a day and with intermittent phlebotomy on as needed basis. Early this morning patient underwent a phlebotomy 1 unit due to her hematocrit of 46% . Previous phlebotomy happened about 2 months ago. Clinically patient reports occasional on and off scratchy throat, but no fever and no chills. Patient also reported mild thinning of the hair. She denies any rash or ulcers. Patient said that currently she is on diet for weight control. Patient has lost weight about 25 lb. No bleeding, bruising or rash, cough, dyspnea, headaches or new neurologic symptoms. ONCOLOGICAL HISTORY She presented on September 12, 2017 in [place] with hemoglobin level 21.7, hematocrit level 66.8%, MCV 103.2, white cell count 7.7 and platelet count [id number]. Workup showed low erythropoietin level at positive JAK2 mutation consistent with the diagnosis of polycythemia vera. She was therefore started on phlebotomy with a goal of keeping hematocrit level below 45%. - Patient Self-Reported Symptoms SR Constitution: Weight loss/gain (Patient has been on diet to control the week. ) SR ears, nose, mouth, throat issues: Hoarseness (On and off scratchy throat.) SR Skin issues: Hair loss or scalp prob SR Gastrointestinal issues: Heartburn - Additional ROS All systems PM: reviewed and no additional remarkable complaints except as stated Results - Labs Laboratory Last Values Ferritin 8.3 ng/mL (11.1-264) L 12/11/17 08:29 Labs from February 18, 2018 WBC 6.73, RBC 5.21, hemoglobin 13.8, hematocrit 46% , MCV 89, platelet 344 sodium 137, potassium 4.4, chloride 100, carbon dioxide 24, anion gap 13, glucose 74, urea nitrogen 9, creatinine 0.65, total protein 6.6, albumin 4.4, total bilirubin 0.8, calcium 9.6, AST 21, ALP 74, ALT 13,. Home Medications and Allergies Home Medications Medication Instructions Recorded Confirmed Type cholecalciferol (vitamin D3) 2,000 unit PO DAILY 10/15/17 12/10/17 History [Vitamin D3] magnesium 200 mg PO DAILY 10/15/17 12/10/17 History hydroxyurea 500 mg PO DAILY #30 cap 12/10/17 01/07/18 Rx Allergies Allergy/AdvReac Type Severity Reaction Status Date / Time No Known Drug Allergies Allergy Verified 10/09/17 14:04 Exam Vital signs: Last Vital Signs Temp 97.8 F 02/19/18 12:13 Pulse 76 02/19/18 12:13 Resp 18 02/19/18 12:13 BP 131/86 02/19/18 12:13 Pulse Ox 100 02/19/18 12:13 - Constitutional positive no acute distress, positive average body habitus, positive cooperative - Routine HEENT Exam Head: Present: normocephalic, atraumatic Eye: Present: EOMI, PERRL, normal accommodation. Absent: conjunctival icterus ENT: Present: mucous membranes moist - Routine Neck Exam Present: supple. Absent: lymphadenopathy, thyromegaly - Routine Respiratory Exam Present: Clear to auscultation bilaterally. Absent: wheezes - Routine Cardiovascular Exam Present: RRR, S1, S2. Absent: murmur, gallop, rubs - Routine Abdominal Exam Present: soft, normoactive bowel sounds Palpation/Percussion: Absent: hepatomegaly, splenomegaly - Routine Extremities Exam Absent: cyanosis, clubbing, edema - Routine Neurological Exam Present: alert, oriented X3, CN II-XII intact, normal reflexes. Absent: sensory deficit, motor deficit - Routine Psychiatric Exam Present: normal affect, normal thought process, cooperative, good insight, good judgment
--- NOTE | 2018-02-19 12:47 | ONC.NAV ---
Description: [employer] [place] Activity: Completed this form and faxed. Will f/u with emailing pt her copies.
--- NOTE | 2018-04-03 13:05 | P.PNONC_ITS ---
PN -Subjective Interval history: INTERIM EVENTS This is a patient with polycythemia vera. Patient is currently taking Hydrea 500 mg once a day and with intermittent phlebotomy on as needed basis. Early this morning patient underwent a phlebotomy 1 unit due to her hematocrit of 46% . Previous phlebotomy happened on 02/19/2018. Clinically patient reports good energy good appetite. No itching. No night sweats. ONCOLOGICAL HISTORY She presented on September 12, 2017 in [place] with hemoglobin level 21.7, hematocrit level 66.8%, MCV 103.2, white cell count 7.7 and platelet count [id number]. Workup showed low erythropoietin level and positive JAK2 mutation consistent with the diagnosis of polycythemia vera. She was therefore started on phlebotomy with a goal of keeping hematocrit level below 45%. On November 26, 2017, she was started on Hydroxyurea 500 mg daily. - Patient Self-Reported Symptoms SR Constitution: Weight loss/gain (Patient has been on diet to control the week. ) SR ears, nose, mouth, throat issues: Hoarseness (On and off scratchy throat.) SR Skin issues: Hair loss or scalp prob SR Gastrointestinal issues: Heartburn - Additional ROS All systems PM: reviewed and no additional remarkable complaints except as stated Home Medications and Allergies Home Medications Medication Instructions Recorded Confirmed Type cholecalciferol (vitamin D3) 2,000 unit PO DAILY 10/15/17 04/03/18 History [Vitamin D3] magnesium 200 mg PO DAILY 10/15/17 04/03/18 History hydroxyurea 500 mg PO DAILY #30 cap 12/10/17 04/03/18 Rx Allergies Allergy/AdvReac Type Severity Reaction Status Date / Time No Known Drug Allergies Allergy Verified 10/09/17 14:04 Exam Vital signs: 3 Temp 98.8 F 04/03/18 13:09 Pulse 73 04/03/18 13:09 Resp 16 04/03/18 13:09 BP 100/67 04/03/18 13:09 Pulse Ox 98 04/03/18 13:09 ECOG 1 Narrative: Constitutional: Well developed, well nourished, not in any acute respiratory distress, average body habitus, well groomed, pleasant and cooperative. HEENT: Normocephalic atraumatic. Extraocular muscle movement intact. Pupils are round, equal and reactive to light and accommodations. Anicteric sclera. No hearing difficulty; Oral mucus membrane moist and without ulcers. Neck: Supple, symmetrical, and tracheal midline; No palpable thyromegaly and no palpable lymph nodes. Respiratory: No use of accessory muscles. Clear to auscultation, and no wheezes or rales or rubs. Cardiovascular: Regular rate and rhythm, S1 and S2 normal, no murmurs gallops or rubs. No JVD. No pitting edema of lower extremities. Abdomen: Soft, nontender, non-distended, bowel sounds normal, no palpable organomegaly, no hernia, no palpable masses. Lower extremities: No palpable pedal edema. Lymphatic: no palpable lymph nodes in the neck, axillae, or groins. Musculoskeletal: normal gait and station, no clubbing, no cyanosis, no pitting edema. Skin: no rashes, no ulcers, no petechiae Neurological: Awake and alert and oriented x3. CN II-XII grossly intact. No focal motor or sensory deficit. Psychiatric: Good judgment, good insight, normal affect, normal thought process , cooperative, no depression, no anxiety. Results - Labs Laboratory results from outside hospital on March 31, 2018: WBC 6.9, red blood cells 4.63, hemoglobin 13.4, hematocrit 45%, MCV 96, MCH 28.9, MCHC 30.1, platelets 469. Assessment and Plan (1) Polycythemia vera We will continue hydroxyurea 500 mg once a day Will continue monthly CBC/CMP. Return to clinic in 2 months.
[2018-04-03 13:09] VITALS: BP 100/67; PULSE 73; RESP 16; TEMP 37.1; O2SAT 98
== END 2018-04-04 12:00 ==
PROVIDERS: Internal Medicine Hematology & Oncology; PCP Family Medicine; Visit Provider Nurse Practitioner Gerontology
DX: D45 Polycythemia vera (principal)
CPT/HCPCS: 36415; 80053; 82728; 83002; 83615; 85014; 85018; 85025; 99195; 99214

== ENCOUNTER → 2018-05-21 07:29 | Outpatient (CLI) | payer MEDICARE, OTHER, SELFPAY ==
[2018-05-21 08:09] LABS: Add Manual Diff / Slide Review NO; Basophils Percent Auto 1.9 % (0-2); Eosinophils Percent Auto 3.3 % (2-4); Hematocrit 44.7 % (36-46); Hemoglobin 13.8 g/dL (12.0-16.0); Lymphocytes Percent Auto 16.1 % (25-40); Mean Corpuscular HGB Conc 30.9 % (30-36); Mean Corpuscular Hemoglobin 27.9 PG (26-34); Mean Corpuscular Volume 90.2 fL (80-100); Monocytes Percent Auto 6.8 % (3-14); Neutrophils Absolute Auto 5400 /uL (3000-5900); Neutrophils Percent Auto 71.9 % (50-75); Red Blood Cell Count 4.96 X10^6/uL (4.0-5.2); Red Cell Distribution Width 21.6 % (11.6-14.8); White Blood Cell Count 7.5 X10^3/uL (4.5-11.0)
[2018-05-21 08:20] LABS: Alanine Aminotransferase 30 IU/L (9-52); Albumin 4.5 g/dL (3.5-5.0); Albumin Globulin Ratio 1.7 (1.0-2.8); Alkaline Phosphatase 75 U/L (38-126); Aspartate Aminotransferase 25 IU/L (14-36); BUN Creatinine Ratio 18.6 (6-22); Bilirubin Total 0.5 mg/dL (0.2-1.3); Blood Urea Nitrogen 13 mg/dL (7-17); Calcium 9.8 mg/dL (8.4-10.2); Carbon Dioxide 28 mmol/L (22-32); Chloride 100 mmol/L (98-107); Estimated Glomerular Filt Rate > 60.0 mL/min (>60); Globulin 2.6 g/dL (1.7-4.1); Glucose 89 mg/dL (80-110); HEMOLYSIS < 15 (0-50); Potassium 4.7 mmol/L (3.4-5.1); Sodium 141 mmol/L (137-145); Total Protein 7.1 g/dL (6.3-8.2)
[2018-05-21 08:41] LABS: Hypochromasia 2+
[2018-05-21 08:42] LABS: Anisocytosis 2+; Platelet Count 394 X10^3/uL (150-400)
== END ==
PROVIDERS: Family Provider Family Medicine; PCP Family Medicine; Visit Provider Internal Medicine Hematology & Oncology
DX: D45 Polycythemia vera (principal)
CPT/HCPCS: 36415; 80053; 85025

== ENCOUNTER → 2018-05-29 07:34 | Outpatient (CLI) | payer MEDICARE, OTHER, SELFPAY ==
[2018-05-29 07:52] LABS: Add Manual Diff / Slide Review NO; Basophils Percent Auto 1.2 % (0-2); Hematocrit 42.2 % (36-46); Hemoglobin 13.4 g/dL (12.0-16.0); Lymphocytes Percent Auto 16.9 % (25-40); Mean Corpuscular HGB Conc 31.7 % (30-36); Mean Corpuscular Hemoglobin 28.2 PG (26-34); Mean Corpuscular Volume 88.8 fL (80-100); Monocytes Percent Auto 5.2 % (3-14); Neutrophils Absolute Auto 5300 /uL (1500-7000); Neutrophils Percent Auto 73.7 % (50-75); Platelet Count 393 X10^3/uL (150-400); Red Blood Cell Count 4.75 X10^6/uL (4.0-5.2); Red Cell Distribution Width 21.2 % (11.6-14.8); White Blood Cell Count 7.2 X10^3/uL (4.5-11.0)
[2018-05-29 08:19] LABS: Anisocytosis 1+; Poikilocytosis 1+
--- NOTE | 2018-09-15 12:58 | ONC.NAV ---
Description: Medical [employer] Activity: Completed a form for pt's appt. on 10/05/18 only.
== END ==
PROVIDERS: Family Provider Family Medicine; PCP Family Medicine; Visit Provider Internal Medicine Hematology & Oncology
DX: D45 Polycythemia vera (principal)
CPT/HCPCS: 36415; 85025

== ENCOUNTER → 2018-07-09 11:31 | Outpatient (CLI) | payer MEDICARE, OTHER, SELFPAY ==
[2018-07-09 12:11] LABS: Add Manual Diff / Slide Review NO; Basophils Absolute Auto 100 /uL (0-100); Basophils Percent Auto 1.2 % (0-2); Eosinophils Absolute Auto 200 /uL (0-450); Eosinophils Percent Auto 2.9 % (2-4); Hematocrit 44.6 % (36-46); Lymphocytes Absolute Auto 1500 /uL (1100-4500); Lymphocytes Percent Auto 24.2 % (25-40); Mean Corpuscular HGB Conc 31.4 % (30-36); Mean Corpuscular Hemoglobin 27.5 PG (26-34); Mean Corpuscular Volume 87.7 fL (80-100); Monocytes Absolute Auto 300 /uL (0-900); Monocytes Percent Auto 5.8 % (3-14); Neutrophils Absolute Auto 4000 /uL (1500-7000); Neutrophils Percent Auto 65.9 % (50-75); Platelet Count 372 X10^3/uL (150-400); Red Blood Cell Count 5.09 X10^6/uL (4.0-5.2); White Blood Cell Count 6.1 X10^3/uL (4.5-11.0)
[2018-07-09 12:23] LABS: Alanine Aminotransferase 20 IU/L (9-52); Albumin 4.4 g/dL (3.5-5.0); Albumin Globulin Ratio 1.4 (1.0-2.8); Alkaline Phosphatase 73 U/L (38-126); Anisocytosis 2+; Aspartate Aminotransferase 27 IU/L (14-36); Bilirubin Total 0.5 mg/dL (0.2-1.3); Blood Urea Nitrogen 9 mg/dL (7-17); Calcium 9.3 mg/dL (8.4-10.2); Carbon Dioxide 27 mmol/L (22-32); Chloride 99 mmol/L (98-107); Estimated Glomerular Filt Rate > 60.0 mL/min (>60); Globulin 3.1 g/dL (1.7-4.1); Glucose 90 mg/dL (80-110); HEMOLYSIS < 15 (0-50); Potassium 4.1 mmol/L (3.4-5.1); Sodium 137 mmol/L (137-145); Total Protein 7.5 g/dL (6.3-8.2)
== END ==
PROVIDERS: Family Provider Family Medicine; PCP Family Medicine; Visit Provider Internal Medicine Hematology & Oncology
DX: D45 Polycythemia vera (principal)
CPT/HCPCS: 36415; 80053; 85025

== ENCOUNTER → 2018-08-25 07:42 | Outpatient (CLI) | payer MEDICARE, OTHER, SELFPAY ==
[2018-08-25 08:35] LABS: Add Manual Diff / Slide Review NO; Basophils Absolute Auto 100 /uL (0-100); Basophils Percent Auto 1.1 % (0-2); Eosinophils Absolute Auto 100 /uL (0-450); Eosinophils Percent Auto 1.7 % (2-4); Hematocrit 45.3 % (36-46); Hemoglobin 14.8 g/dL (12.0-16.0); Lymphocytes Absolute Auto 1000 /uL (1100-4500); Lymphocytes Percent Auto 17.1 % (25-40); Mean Corpuscular HGB Conc 32.6 % (30-36); Mean Corpuscular Hemoglobin 30.3 PG (26-34); Mean Corpuscular Volume 93.1 fL (80-100); Monocytes Absolute Auto 400 /uL (0-900); Monocytes Percent Auto 6.9 % (3-14); Neutrophils Absolute Auto 4500 /uL (1500-7000); Neutrophils Percent Auto 73.2 % (50-75); Platelet Count 437 X10^3/uL (150-400); Red Blood Cell Count 4.87 X10^6/uL (4.0-5.2); Red Cell Distribution Width 27.9 % (11.6-14.8); White Blood Cell Count 6.1 X10^3/uL (4.5-11.0)
[2018-08-25 08:58] LABS: Dimorphic RBC 2
[2018-08-25 09:14] LABS: Alanine Aminotransferase 28 IU/L (9-52); Albumin 4.5 g/dL (3.5-5.0); Albumin Globulin Ratio 1.6 (1.0-2.8); Alkaline Phosphatase 77 U/L (38-126); Aspartate Aminotransferase 30 IU/L (14-36); BUN Creatinine Ratio 21.7 (6-22); Bilirubin Total 0.4 mg/dL (0.2-1.3); Blood Urea Nitrogen 13 mg/dL (7-17); Calcium 9.7 mg/dL (8.4-10.2); Carbon Dioxide 27 mmol/L (22-32); Chloride 101 mmol/L (98-107); Estimated Glomerular Filt Rate > 60.0 mL/min (>60); Globulin 2.8 g/dL (1.7-4.1); Glucose 80 mg/dL (80-110); HEMOLYSIS < 15 (0-50); Potassium 4.5 mmol/L (3.4-5.1); Sodium 139 mmol/L (137-145); Total Protein 7.3 g/dL (6.3-8.2)
== END ==
PROVIDERS: Family Provider Family Medicine; PCP Family Medicine; Visit Provider Internal Medicine Hematology & Oncology
DX: D45 Polycythemia vera (principal)
CPT/HCPCS: 36415; 80053; 85025

== ENCOUNTER → 2018-08-27 11:17 | Outpatient (CLI) | payer MEDICARE, OTHER, SELFPAY ==
[2018-08-27 11:43] LABS: 585 Gram Check PASS; Zero Check Sebra Scale PASS
[2018-08-27 12:29] LABS: Amount Collected in g 585 GRAM; Dizziness NO; Postdiastolic BP 79; Postsystolic BP 114; Prediastolic 78; Presystolic 129; Pulse 70; Site of phlebotomy RIGHT AC; Swelling NO
[2018-08-27 12:30] LABS: Therapeutic Phleb Comment NO COMMENT
== END ==
PROVIDERS: Family Provider Family Medicine; PCP Family Medicine; Visit Provider Internal Medicine Hematology & Oncology
DX: D45 Polycythemia vera (principal)
CPT/HCPCS: 99195

== ENCOUNTER → 2018-10-05 08:48 | Outpatient (CLI) | payer MEDICARE, OTHER, SELFPAY ==
[2018-10-05 09:33] LABS: Basophils Absolute Auto 0 /uL (0-100); Basophils Percent Auto 0.7 % (0-2); Eosinophils Absolute Auto 100 /uL (0-450); Eosinophils Percent Auto 1.8 % (2-4); Hematocrit 44.5 % (36-46); Hemoglobin 14.4 g/dL (12.0-16.0); Lymphocytes Absolute Auto 1200 /uL (1100-4500); Lymphocytes Percent Auto 19.7 % (25-40); Mean Corpuscular HGB Conc 32.3 % (30-36); Mean Corpuscular Hemoglobin 31.1 PG (26-34); Mean Corpuscular Volume 96.1 fL (80-100); Monocytes Absolute Auto 300 /uL (0-900); Monocytes Percent Auto 5.5 % (3-14); Neutrophils Absolute Auto 4500 /uL (1500-7000); Neutrophils Percent Auto 72.3 % (50-75); Platelet Count 319 X10^3/uL (150-400); Red Blood Cell Count 4.63 X10^6/uL (4.0-5.2); Red Cell Distribution Width 21.3 % (11.6-14.8); White Blood Cell Count 6.2 X10^3/uL (4.5-11.0)
[2018-10-05 09:35] LABS: Add Manual Diff / Slide Review SLIDE REVIEW
[2018-10-05 10:01] LABS: Anisocytosis 1+; Macrocytosis 1+; Poikilocytosis 1+
[2018-10-05 10:39] LABS: Alanine Aminotransferase 22 IU/L (9-52); Albumin 4.6 g/dL (3.5-5.0); Albumin Globulin Ratio 1.8 (1.0-2.8); Alkaline Phosphatase 74 U/L (38-126); Aspartate Aminotransferase 27 IU/L (14-36); BUN Creatinine Ratio 22.5 (6-22); Bilirubin Total 0.4 mg/dL (0.2-1.3); Blood Urea Nitrogen 18 mg/dL (7-17); Calcium 9.8 mg/dL (8.4-10.2); Carbon Dioxide 27 mmol/L (22-32); Chloride 101 mmol/L (98-107); Estimated Glomerular Filt Rate > 60.0 mL/min (>60); Globulin 2.5 g/dL (1.7-4.1); Glucose 84 mg/dL (80-110); HEMOLYSIS < 15 (0-50); Potassium 4.7 mmol/L (3.4-5.1); Sodium 137 mmol/L (137-145); Total Protein 7.1 g/dL (6.3-8.2)
[2019-01-07 08:25] LABS: Basophils Absolute Auto 100 /uL (0-100); Hemoglobin 13.8 g/dL (12.0-16.0); Lymphocytes Absolute Auto 1200 /uL (1100-4500); Red Cell Distribution Width 20.3 % (11.6-14.8)
[2019-01-07 08:28] LABS: Add Manual Diff / Slide Review NO; Eosinophils Absolute Auto 100 /uL (0-450); Eosinophils Percent Auto 2.5 % (2-4); Hematocrit 43.5 % (36-46); Lymphocytes Percent Auto 21.2 % (25-40); Mean Corpuscular HGB Conc 31.8 % (30-36); Mean Corpuscular Hemoglobin 30.5 PG (26-34); Mean Corpuscular Volume 95.8 fL (80-100); Monocytes Absolute Auto 400 /uL (0-900); Monocytes Percent Auto 6.3 % (3-14); Neutrophils Absolute Auto 3900 /uL (1500-7000); Platelet Count 341 X10^3/uL (150-400); Red Blood Cell Count 4.54 X10^6/uL (4.0-5.2); White Blood Cell Count 5.6 X10^3/uL (4.5-11.0)
[2019-01-07 08:29] LABS: Alanine Aminotransferase 11 IU/L (9-52); Albumin 4.2 g/dL (3.5-5.0); Albumin Globulin Ratio 1.5 (1.0-2.8); Alkaline Phosphatase 79 U/L (38-126); Aspartate Aminotransferase 26 IU/L (14-36); BUN Creatinine Ratio 18.3 (6-22); Bilirubin Total 0.4 mg/dL (0.2-1.3); Blood Urea Nitrogen 11 mg/dL (7-17); Calcium 9.4 mg/dL (8.4-10.2); Carbon Dioxide 28 mmol/L (22-32); Chloride 103 mmol/L (98-107); Estimated Glomerular Filt Rate > 60.0 mL/min (>60); Globulin 2.8 g/dL (1.7-4.1); Glucose 82 mg/dL (80-110); HEMOLYSIS < 15 (0-50); Potassium 4.1 mmol/L (3.4-5.1); Sodium 138 mmol/L (137-145)
[2019-01-07 08:38] LABS: Lactate Dehydrogenase 470 U/L (313-618)
[2019-01-07 10:24] LABS: Anisocytosis 1+; Macrocytosis 1+
== END ==
PROVIDERS: Family Provider Family Medicine; PCP Family Medicine; Visit Provider Internal Medicine Hematology & Oncology
DX: D45 Polycythemia vera (principal)
CPT/HCPCS: 36415; 80053; 85025

== ENCOUNTER → 2019-05-21 07:46 | Oncology outpatient (ONC) | payer MEDICARE, OTHER, SELFPAY ==
[2018-10-05 12:22] VITALS: BP 131/79; PULSE 98; RESP 16; TEMP 36.6; O2SAT 98
--- NOTE | 2018-10-05 12:53 | ONC.PN ---
PN -Subjective Interval history: This is a patient with polycythemia vera. Patient is currently taking Hydrea 500 mg once a day and with intermittent phlebotomy on as needed basis. Since last phlebotomy on Apr 03, 2018, she had only one other phlebotomy on 08/27/2018. She said she has a machine called [employer] that can measure HCT at home. She observed that [employer] measurement of HCT is roughly in line with HCT at our clinic. She denies any rashes, or itching skin. She reports some hair loss. Oncological History: She presented on September 12, 2017 in [place] with hemoglobin level 21.7, hematocrit level 66.8%, MCV 103.2, white cell count 7.7 and platelet count [id number]. Workup showed low erythropoietin level and positive JAK2 mutation consistent with the diagnosis of polycythemia vera. She was therefore started on phlebotomy with a goal of keeping hematocrit level below 45%. On November 26, 2017, she was started on Hydroxyurea 500 mg daily. - Patient Self-Reported Symptoms SR Skin issues: Hair loss or scalp prob - Additional ROS All systems PM: reviewed and no additional remarkable complaints except as stated Home Medications and Allergies Home Medications Medication Instructions Recorded Confirmed Type cholecalciferol (vitamin D3) 2,000 unit PO DAILY 10/15/17 10/05/18 History [Vitamin D3] magnesium 200 mg PO DAILY 10/15/17 10/05/18 History hydroxyurea 500 mg PO DAILY #30 cap 12/10/17 10/05/18 Rx Allergies Allergy/AdvReac Type Severity Reaction Status Date / Time No Known Drug Allergies Allergy Verified 10/09/17 14:04 Exam Vital signs: Last Vital Signs Temp 97.8 F 10/05/18 12:22 Pulse 98 H 10/05/18 12:22 Resp 16 10/05/18 12:22 BP 131/79 10/05/18 12:22 Pulse Ox 98 10/05/18 12:22 ECOG 1 Narrative: Gen: WDWN, NAD, pleasant and cooperative Heent: NCAT, EOMI, PERLLA, anicteric Neck: supple, no lymph nodes palpable Resp: CTAB, no wheezes Card: RRR, S1 and S2 normal, no mgr Abd: soft, no palpable organomegaly Ext: no edema Neuro: AOx3,nonfocal. Results - Labs 10/05/2018 WBC 6.2, HGB 14.4, HCT 44.5, PLT 319 Assessment and Plan (1) Polycythemia vera Patient's hematocrit level is below 45%. There is no need for phlebotomy. I explained to the patient that since March of 2018 until now, patient required only 2 phlebotomies while she is on hydroxyurea 500 mg once a day. I talked with her that I do not think it is necessary to check the CBC every month. I think every 3 months would be good enough. In addition patient has a machine called [employer] that can check roughly hematocrit. I talked with her if there is worrisome result from the [employer], she can call us or come to our clinic for check of the CBC. Patient voiced understanding. Plan: 1. Continue Hydrea 500 mg daily 2. RTC in 3 months, CBC, CMP, Ferritin, Iron panel
[2018-11-03 07:53] LABS: Add Manual Diff / Slide Review NO; Basophils Absolute Auto 0 /uL (0-100); Basophils Percent Auto 0.9 % (0-2); Eosinophils Absolute Auto 100 /uL (0-450); Eosinophils Percent Auto 2.4 % (2-4); Hematocrit 46.6 % (36-46); Hemoglobin 14.9 g/dL (12.0-16.0); Lymphocytes Absolute Auto 1100 /uL (1100-4500); Lymphocytes Percent Auto 18.3 % (25-40); Mean Corpuscular HGB Conc 31.9 % (30-36); Mean Corpuscular Hemoglobin 30.8 PG (26-34); Mean Corpuscular Volume 96.6 fL (80-100); Monocytes Absolute Auto 300 /uL (0-900); Monocytes Percent Auto 4.9 % (3-14); Neutrophils Absolute Auto 4300 /uL (1500-7000); Neutrophils Percent Auto 73.5 % (50-75); Platelet Count 312 X10^3/uL (150-400); Red Blood Cell Count 4.82 X10^6/uL (4.0-5.2); Red Cell Distribution Width 19.1 % (11.6-14.8); White Blood Cell Count 5.8 X10^3/uL (4.5-11.0)
[2018-11-03 10:47] LABS: 585 Gram Check PASS; Amount Collected in g 585 GRAM; Dizziness NO; Postdiastolic BP 82; Postsystolic BP 151; Prediastolic 95; Presystolic 160; Pulse 58; Site of phlebotomy RIGHT AC; Swelling NO; Therapeutic Phleb Comment NO COMMENT; Zero Check Sebra Scale PASS
[2018-11-19 08:01] LABS: Add Manual Diff / Slide Review NO; Basophils Absolute Auto 100 /uL (0-100); Basophils Percent Auto 1.2 % (0-2); Eosinophils Absolute Auto 100 /uL (0-450); Eosinophils Percent Auto 2.4 % (2-4); Hematocrit 42.7 % (36-46); Hemoglobin 13.6 g/dL (12.0-16.0); Lymphocytes Absolute Auto 1100 /uL (1100-4500); Lymphocytes Percent Auto 18.7 % (25-40); Mean Corpuscular HGB Conc 31.9 % (30-36); Mean Corpuscular Hemoglobin 30.7 PG (26-34); Mean Corpuscular Volume 96.2 fL (80-100); Monocytes Absolute Auto 300 /uL (0-900); Monocytes Percent Auto 5.3 % (3-14); Neutrophils Absolute Auto 4400 /uL (1500-7000); Neutrophils Percent Auto 72.4 % (50-75); Platelet Count 399 X10^3/uL (150-400); Red Blood Cell Count 4.44 X10^6/uL (4.0-5.2); Red Cell Distribution Width 18.1 % (11.6-14.8); White Blood Cell Count 6.1 X10^3/uL (4.5-11.0)
[2018-11-19 08:19] LABS: Alanine Aminotransferase 16 IU/L (9-52); Albumin 4.5 g/dL (3.5-5.0); Albumin Globulin Ratio 1.5 (1.0-2.8); Alkaline Phosphatase 70 U/L (38-126); Aspartate Aminotransferase 28 IU/L (14-36); BUN Creatinine Ratio 21.4 (6-22); Bilirubin Total 0.5 mg/dL (0.2-1.3); Blood Urea Nitrogen 15 mg/dL (7-17); Calcium 9.6 mg/dL (8.4-10.2); Carbon Dioxide 29 mmol/L (22-32); Chloride 102 mmol/L (98-107); Estimated Glomerular Filt Rate > 60.0 mL/min (>60); Glucose 84 mg/dL (80-110); HEMOLYSIS < 15 (0-50); Potassium 4.2 mmol/L (3.4-5.1); Sodium 137 mmol/L (137-145); Total Protein 7.5 g/dL (6.3-8.2)
[2018-11-19 08:33] LABS: Iron 41 ug/dL (37-170)
[2018-11-19 08:54] LABS: Ferritin 11.4 ng/mL (11.1-264)
[2019-01-07 11:33] VITALS: BP 137/81; PULSE 63; RESP 16; TEMP 36.6; O2SAT 99
--- NOTE | 2019-01-07 12:00 | P.PNONC_ITS ---
PN -Subjective Interval history: This is a patient with polycythemia vera. Patient is currently taking Hydrea 500 mg once a day and with intermittent phlebotomy on as needed basis. Since last phlebotomy on Apr 03, 2018, she had only one other phlebotomy on 08/27/2018. She said she has a machine called ketoMojo that can measure HCT at home. She observed that KetoMjo measurement of HCT is roughly in line with HCT at our clinic. She denies any rashes, or itching skin. She reports some hair loss. Oncological History: She presented on September 12, 2017 in [place] with hemoglobin level 21.7, hematocrit level 66.8%, MCV 103.2, white cell count 7.7 and platelet count [id number]. Workup showed low erythropoietin level and positive JAK2 mutation consistent with the diagnosis of polycythemia vera. She was therefore started on phlebotomy with a goal of keeping hematocrit level below 45%. On November 26, 2017, she was started on Hydroxyurea 500 mg daily. - Patient Self-Reported Symptoms SR Skin issues: Dry skin, Hair loss or scalp prob, Nail changes - Additional ROS All systems PM: reviewed and no additional remarkable complaints except as stated Home Medications and Allergies Home Medications Medication Instructions Recorded Confirmed Type cholecalciferol (vitamin D3) 2,000 unit PO DAILY 10/15/17 10/05/18 History [Vitamin D3] magnesium 200 mg PO DAILY 10/15/17 10/05/18 History hydroxyurea 500 mg PO DAILY #30 cap 12/10/17 10/05/18 Rx Allergies Allergy/AdvReac Type Severity Reaction Status Date / Time No Known Drug Allergies Allergy Verified 10/09/17 14:04 Exam Vital signs: Vital Signs Temp Pulse Resp BP Pulse Ox 01/07/19 11:33 97.9 F 63 16 137/81 99 Intake and Output 01/06/19 01/07/19 01/07/19 23:59 07:59 15:59 Other: Weight 87.3 kg Patient Weight 01/07/19 23:59 Weight 87.3 kg Results - Labs Laboratory Last Values WBC 6.1 X10^3/uL (4.5-11.0) 11/19/18 07:46 RBC 4.44 X10^6/uL (4.0-5.2) 11/19/18 07:46 Hgb 13.6 g/dL (12.0-16.0) 11/19/18 07:46 Hct 42.7 % (36-46) 11/19/18 07:46 MCV 96.2 fL (80-100) 11/19/18 07:46 MCH 30.7 PG (26-34) 11/19/18 07:46 MCHC 31.9 % (30-36) 11/19/18 07:46 RDW 18.1 % (11.6-14.8) H 11/19/18 07:46 Plt Count 399 X10^3/uL (150-400) 11/19/18 07:46 Neut % (Auto) 72.4 % (50-75) 11/19/18 07:46 Lymph % (Auto) 18.7 % (25-40) L 11/19/18 07:46 [place] % (Auto) 5.3 % (3-14) 11/19/18 07:46 Eos % (Auto) 2.4 % (2-4) 11/19/18 07:46 Baso % (Auto) 1.2 % (0-2) 11/19/18 07:46 Neut # (Auto) 4400 /uL (2023-1536) 11/19/18 07:46 Lymph # (Auto) 1100 /uL (7277-3059) 11/19/18 07:46 [place] # (Auto) 300 /uL (0-900) 11/19/18 07:46 Eos # (Auto) 100 /uL (0-450) 11/19/18 07:46 Baso # (Auto) 100 /uL (0-100) 11/19/18 07:46 Sodium 137 mmol/L (137-145) 11/19/18 07:41 Potassium 4.2 mmol/L (3.4-5.1) 11/19/18 07:41 Chloride 102 mmol/L (98-107) 11/19/18 07:41 Carbon Dioxide 29 mmol/L (22-32) 11/19/18 07:41 BUN 15 mg/dL (7-17) 11/19/18 07:41 Creatinine 0.70 mg/dL (0.52-1.04) 11/19/18 07:41 Estimated GFR > 60.0 mL/min (>60) 11/19/18 07:41 BUN/Creatinine Ratio 21.4 (6-22) 11/19/18 07:41 Glucose 84 mg/dL (80-110) 11/19/18 07:41 Calcium 9.6 mg/dL (8.4-10.2) 11/19/18 07:41 Iron 41 ug/dL (37-170) 11/19/18 07:41 Ferritin 11.4 ng/mL (11.1-264) 11/19/18 07:41 Total Bilirubin 0.5 mg/dL (0.2-1.3) 11/19/18 07:41 AST 28 IU/L (14-36) 11/19/18 07:41 ALT 16 IU/L (9-52) 11/19/18 07:41 Alkaline Phosphatase 70 U/L (38-126) 11/19/18 07:41 Total Protein 7.5 g/dL (6.3-8.2) 11/19/18 07:41 Albumin 4.5 g/dL (3.5-5.0) 11/19/18 07:41 Globulin 3.0 g/dL (1.7-4.1) 11/19/18 07:41 Albumin/Globulin Ratio 1.5 (1.0-2.8) 11/19/18 07:41 Scale Conventional Cl Pass 11/03/18 10:46 Assessment and Plan (1) Polycythemia vera Patient's hematocrit level is below 45%. There is no need for phlebotomy. I explained to the patient that since March of 2018 until now, patient required only 2 phlebotomies while she is on hydroxyurea 500 mg once a day. Patient currently is using her Ki toe december device to check the hemoglobin and hematocrit. Patient said that it call it is very nicely with the lab tests we did here. I talked with her and encouraged her try to do a correlation graft and see if these closely correlated. If it is confirmed I would think it would be great. Patient voiced understanding. I talked with her that I will see her in about 3 months for follow-up visit. Plan: 1. Continue Hydrea 500 mg daily 2. RTC in 3 months, CBC, CMP
--- NOTE | 2019-01-18 11:35 | ONC.MSW ---
Description: Medical Priority Boarding Pass Request Activity: Pt again requested a 90-day medical priority boarding pass [place] the ferry, however this [employer] has explained more than a few times that she only has 1-appt. every 90-days, and thus we cannot provide that. However, [employer] did complete a 1-day pass for her appt. on 04/08/19, and will send it out to her via [place] Mail.
[2019-01-21 07:58] LABS: Add Manual Diff / Slide Review NO; Basophils Absolute Auto 100 /uL (0-100); Eosinophils Absolute Auto 100 /uL (0-450); Eosinophils Percent Auto 2.2 % (2-4); Hemoglobin 14.1 g/dL (12.0-16.0); Lymphocytes Absolute Auto 1100 /uL (1100-4500); Lymphocytes Percent Auto 18.3 % (25-40); Mean Corpuscular Hemoglobin 30.9 PG (26-34); Mean Corpuscular Volume 96.3 fL (80-100); Monocytes Absolute Auto 400 /uL (0-900); Monocytes Percent Auto 6.9 % (3-14); Neutrophils Absolute Auto 4400 /uL (1500-7000); Neutrophils Percent Auto 71.6 % (50-75); Platelet Count 376 X10^3/uL (150-400); Red Blood Cell Count 4.57 X10^6/uL (4.0-5.2); Red Cell Distribution Width 20.4 % (11.6-14.8); White Blood Cell Count 6.1 X10^3/uL (4.5-11.0)
[2019-01-21 08:18] LABS: Anisocytosis 2+
[2019-02-11 08:06] LABS: Add Manual Diff / Slide Review NO; Basophils Absolute Auto 100 /uL (0-100); Basophils Percent Auto 1.3 % (0-2); Eosinophils Absolute Auto 100 /uL (0-450); Eosinophils Percent Auto 2.5 % (2-4); Hematocrit 44.7 % (36-46); Hemoglobin 14.3 g/dL (12.0-16.0); Lymphocytes Absolute Auto 1100 /uL (1100-4500); Lymphocytes Percent Auto 20.2 % (25-40); Mean Corpuscular Hemoglobin 30.7 PG (26-34); Mean Corpuscular Volume 96.1 fL (80-100); Monocytes Absolute Auto 300 /uL (0-900); Monocytes Percent Auto 5.3 % (3-14); Neutrophils Absolute Auto 3800 /uL (1500-7000); Neutrophils Percent Auto 70.7 % (50-75); Platelet Count 290 X10^3/uL (150-400); Red Blood Cell Count 4.65 X10^6/uL (4.0-5.2); Red Cell Distribution Width 19.4 % (11.6-14.8); White Blood Cell Count 5.4 X10^3/uL (4.5-11.0)
[2019-02-26 10:21] LABS: 585 Gram Check PASS; Postdiastolic BP 88; Postsystolic BP 123; Prediastolic 93; Presystolic 138; Pulse 67; Site of phlebotomy RAC; Zero Check Sebra Scale PASS
[2019-02-26 10:22] LABS: Dizziness NO; Swelling NO; Therapeutic Phleb Comment NO COMMENT
[2019-04-08 08:02] LABS: Add Manual Diff / Slide Review NO; Basophils Absolute Auto 100 /uL (0-100); Eosinophils Absolute Auto 100 /uL (0-450); Eosinophils Percent Auto 2.1 % (2-4); Hematocrit 43.9 % (36-46); Hemoglobin 14.1 g/dL (12.0-16.0); Lymphocytes Absolute Auto 1000 /uL (1100-4500); Lymphocytes Percent Auto 15.1 % (25-40); Mean Corpuscular HGB Conc 32.1 % (30-36); Mean Corpuscular Hemoglobin 30.8 PG (26-34); Monocytes Absolute Auto 300 /uL (0-900); Monocytes Percent Auto 5.2 % (3-14); Neutrophils Absolute Auto 5100 /uL (1500-7000); Neutrophils Percent Auto 76.6 % (50-75); Platelet Count 402 X10^3/uL (150-400); Red Blood Cell Count 4.57 X10^6/uL (4.0-5.2); Red Cell Distribution Width 18.7 % (11.6-14.8); White Blood Cell Count 6.6 X10^3/uL (4.5-11.0)
[2019-04-08 08:15] LABS: Alanine Aminotransferase 13 IU/L (9-52); Albumin 4.5 g/dL (3.5-5.0); Albumin Globulin Ratio 1.6 (1.0-2.8); Alkaline Phosphatase 82 U/L (38-126); Aspartate Aminotransferase 30 IU/L (14-36); BUN Creatinine Ratio 18.3 (6-22); Bilirubin Total 0.6 mg/dL (0.2-1.3); Blood Urea Nitrogen 11 mg/dL (7-17); Calcium 9.5 mg/dL (8.4-10.2); Carbon Dioxide 28 mmol/L (22-32); Chloride 100 mmol/L (98-107); Estimated Glomerular Filt Rate > 60.0 mL/min (>60); Globulin 2.9 g/dL (1.7-4.1); Glucose 91 mg/dL (80-110); HEMOLYSIS < 15 (0-50); Lactate Dehydrogenase 495 U/L (313-618); Potassium 4.3 mmol/L (3.4-5.1); Sodium 137 mmol/L (137-145); Total Protein 7.4 g/dL (6.3-8.2)
[2019-04-08 10:54] VITALS: BP 135/90; PULSE 66; RESP 18; TEMP 36.5; O2SAT 100
--- NOTE | 2019-04-08 10:56 | P.PNONC_ITS ---
PN -Subjective Interval history: ID/CC: 68 year old female with polycythemia vera. Interim Events: Patient is currently taking Hydrea 500 mg once a day and with intermittent phlebotomy on as needed basis. She does not want to increase the dosage of Hydrea. She has been on online block for polycythemia vera. She has significant concerns over toxicities of long-term use of Hydrea. She would like to use the lowest possible dosage of Hydrea. No other new events. Oncological History: She presented on September 12, 2017 in [place] with hemoglobin level 21.7, hematocrit level 66.8%, MCV 103.2, white cell count 7.7 and platelet count [id number]. Workup showed low erythropoietin level and positive JAK2 mutation consistent with the diagnosis of polycythemia vera. She was therefore started on phlebotomy with a goal of keeping hematocrit level below 45%. On November 26, 2017, she was started on Hydroxyurea 500 mg daily. - Patient Self-Reported Symptoms SR Skin issues: Dry skin, Hair loss or scalp prob, Nail changes - Additional ROS All systems PM: reviewed and no additional remarkable complaints except as stated Home Medications and Allergies Home Medications Medication Instructions Recorded Confirmed Type cholecalciferol (vitamin D3) 2,000 unit PO DAILY 10/15/17 10/05/18 History [Vitamin D3] magnesium 200 mg PO DAILY 10/15/17 10/05/18 History hydroxyurea 500 mg PO DAILY #30 cap 12/10/17 10/05/18 Rx Allergies Allergy/AdvReac Type Severity Reaction Status Date / Time No Known Drug Allergies Allergy Verified 10/09/17 14:04 Exam Vital signs: Vital Signs Temp Pulse Resp BP Pulse Ox 04/08/19 10:54 97.7 F 66 18 135/90 100 Intake and Output 04/07/19 04/08/19 04/08/19 23:59 07:59 15:59 Other: Weight 86.2 kg Patient Weight 04/08/19 23:59 Weight 86.2 kg - Constitutional positive no acute distress, positive average body habitus, positive cooperative - Routine HEENT Exam Head: Present: normocephalic, atraumatic Eye: Present: EOMI, PERRL, normal accommodation. Absent: conjunctival icterus ENT: Present: mucous membranes moist - Routine Neck Exam Present: supple. Absent: lymphadenopathy, thyromegaly - Routine Chest/Breast/Axilla Exam Axillae: Absent: lymphadenopathy - Routine Respiratory Exam Present: Clear to auscultation bilaterally - Routine Cardiovascular Exam Present: RRR, S1, S2. Absent: murmur, gallop, rubs - Routine Abdominal Exam Present: soft. Absent: tenderness, distended, organomegaly - Routine Extremities Exam Absent: edema - Routine Neurological Exam Present: alert, oriented X3, CN II-XII intact. Absent: sensory deficit, motor deficit - Routine Psychiatric Exam Present: normal affect Results - Labs Laboratory Last Values WBC 6.6 X10^3/uL (4.5-11.0) 04/08/19 07:44 RBC 4.57 X10^6/uL (4.0-5.2) 04/08/19 07:44 Hgb 14.1 g/dL (12.0-16.0) 04/08/19 07:44 Hct 43.9 % (36-46) 04/08/19 07:44 MCV 96.0 fL (80-100) 04/08/19 07:44 MCH 30.8 PG (26-34) 04/08/19 07:44 MCHC 32.1 % (30-36) 04/08/19 07:44 RDW 18.7 % (11.6-14.8) H 04/08/19 07:44 Plt Count 402 X10^3/uL (150-400) H 04/08/19 07:44 Neut % (Auto) 76.6 % (50-75) H 04/08/19 07:44 Lymph % (Auto) 15.1 % (25-40) L 04/08/19 07:44 [place] % (Auto) 5.2 % (3-14) 04/08/19 07:44 Eos % (Auto) 2.1 % (2-4) 04/08/19 07:44 Baso % (Auto) 1.0 % (0-2) 04/08/19 07:44 Neut # (Auto) 5100 /uL (3556-7674) 04/08/19 07:44 Lymph # (Auto) 1000 /uL (8480-2411) L 04/08/19 07:44 [place] # (Auto) 300 /uL (0-900) 04/08/19 07:44 Eos # (Auto) 100 /uL (0-450) 04/08/19 07:44 Baso # (Auto) 100 /uL (0-100) 04/08/19 07:44 RBC Morphology Not Reportable 01/21/19 07:41 Anisocytosis 2+ H 01/21/19 07:41 Sodium 137 mmol/L (137-145) 04/08/19 07:44 Potassium 4.3 mmol/L (3.4-5.1) 04/08/19 07:44 Chloride 100 mmol/L (98-107) 04/08/19 07:44 Carbon Dioxide 28 mmol/L (22-32) 04/08/19 07:44 BUN 11 mg/dL (7-17) 04/08/19 07:44 Creatinine 0.60 mg/dL (0.52-1.04) 04/08/19 07:44 Estimated GFR > 60.0 mL/min (>60) 04/08/19 07:44 BUN/Creatinine Ratio 18.3 (6-22) 04/08/19 07:44 Glucose 91 mg/dL (80-110) 04/08/19 07:44 Calcium 9.5 mg/dL (8.4-10.2) 04/08/19 07:44 Iron 41 ug/dL (37-170) 11/19/18 07:41 Ferritin 11.4 ng/mL (11.1-264) 11/19/18 07:41 Total Bilirubin 0.6 mg/dL (0.2-1.3) 04/08/19 07:44 AST 30 IU/L (14-36) 04/08/19 07:44 ALT 13 IU/L (9-52) 04/08/19 07:44 Alkaline Phosphatase 82 U/L (38-126) 04/08/19 07:44 Lactate Dehydrogenase 495 U/L (313-618) 04/08/19 07:44 Total Protein 7.4 g/dL (6.3-8.2) 04/08/19 07:44 Albumin 4.5 g/dL (3.5-5.0) 04/08/19 07:44 Globulin 2.9 g/dL (1.7-4.1) 04/08/19 07:44 Albumin/Globulin Ratio 1.6 (1.0-2.8) 10/24/19 07:44 Scale Conventional Cl Pass 02/26/19 10:21 Specimen Hemolysis Cancelled 01/21/19 07:41 Assessment and Plan (1) Polycythemia vera Overview: 68 year old with polycythemia vera on hydrea 500 mg daily and intermittent prn phlebotomy. Assessment: Patient would like to use the lowest possible dosage of Hydrea while doing intermittent phlebotomy. She is worried about long-term side effects of Hydrea. Plan: 1. Continue Hydrea 500 mg daily 2. RTC in 3 months, CBC, CMP
--- NOTE | 2019-04-08 11:46 | PC.NURSE ---
Patient voiced she was unhappy we were 20 minutes late for her appointment. I explained the DrChapo had an emergency in the treatment room which delayed his arrival to her exam room. Patient had arrived 1.5 hours prior to her appointment because of her ferry so she had been waiting due to her ferry. She explained she was upset we couldn't give her a ferry pass as she doesn't meet the guidelines to receive one. She also was upset about the taxi that has given her rides to the ferry in the past. She voiced she would be documenting everything and would be making a complaint to the administration at this hospital. I asked her if she would like to speak with our director today, she declined. I told I would pass on her concerns with our director, Alexa Gacria.
[2019-05-21 08:12] LABS: Add Manual Diff / Slide Review NO; Basophils Absolute Auto 100 /uL (0-100); Basophils Percent Auto 0.9 % (0-2); Eosinophils Absolute Auto 100 /uL (0-450); Eosinophils Percent Auto 1.7 % (2-4); Hematocrit 45.1 % (36-46); Hemoglobin 14.3 g/dL (12.0-16.0); Lymphocytes Absolute Auto 800 /uL (1100-4500); Lymphocytes Percent Auto 12.9 % (25-40); Mean Corpuscular HGB Conc 31.7 % (30-36); Mean Corpuscular Hemoglobin 29.9 PG (26-34); Mean Corpuscular Volume 94.4 fL (80-100); Monocytes Absolute Auto 300 /uL (0-900); Monocytes Percent Auto 4.8 % (3-14); Neutrophils Absolute Auto 5000 /uL (1500-7000); Neutrophils Percent Auto 79.7 % (50-75); Platelet Count 259 X10^3/uL (150-400); Red Blood Cell Count 4.78 X10^6/uL (4.0-5.2); Red Cell Distribution Width 18.7 % (11.6-14.8); White Blood Cell Count 6.3 X10^3/uL (4.5-11.0)
== END ==
PROVIDERS: Family Provider Family Medicine; PCP Family Medicine; Visit Provider Internal Medicine Hematology & Oncology
DX: D45 Polycythemia vera (principal)
CPT/HCPCS: 36415; 80053; 82728; 83540; 83615; 85025; 99195; 99214; 99215

== ENCOUNTER → 2019-05-27 09:38 | Outpatient (CLI) | payer MEDICARE, OTHER, SELFPAY ==
[2019-05-27 10:37] LABS: 585 Gram Check PASS; Amount Collected in g 451mL; Postsystolic BP 126; Prediastolic 89; Presystolic 137; Pulse 65; Site of phlebotomy RAC; Zero Check Sebra Scale PASS
[2019-05-27 10:38] LABS: Dizziness NO; Postdiastolic BP 79; Swelling NO; Therapeutic Phleb Comment NO COMMENT
== END ==
PROVIDERS: PCP Family Medicine; Visit Provider Internal Medicine Hematology & Oncology
DX: D45 Polycythemia vera (principal)
CPT/HCPCS: 99195

== ENCOUNTER → 2019-07-29 09:11 | Outpatient (CLI) | payer MEDICARE, OTHER, SELFPAY ==
[2019-07-29 10:27] LABS: 585 Gram Check PASS; Dizziness NO; Postdiastolic BP 95; Postsystolic BP 144; Prediastolic 93; Presystolic 145; Pulse 65; Site of phlebotomy LAC; Swelling NO; Zero Check Sebra Scale PASS
[2019-07-29 10:28] LABS: Therapeutic Phleb Comment NO COMMENT
[2019-07-29 10:36] LABS: Add Manual Diff / Slide Review NO; Basophils Absolute Auto 100 /uL (0-100); Eosinophils Absolute Auto 200 /uL (0-450); Eosinophils Percent Auto 2.7 % (2-4); Hematocrit 44.5 % (36-46); Lymphocytes Absolute Auto 1200 /uL (1100-4500); Lymphocytes Percent Auto 18.3 % (25-40); Mean Corpuscular HGB Conc 31.5 % (30-36); Mean Corpuscular Hemoglobin 29.5 PG (26-34); Mean Corpuscular Volume 93.6 fL (80-100); Monocytes Absolute Auto 400 /uL (0-900); Monocytes Percent Auto 5.4 % (3-14); Neutrophils Absolute Auto 4900 /uL (1500-7000); Neutrophils Percent Auto 72.6 % (50-75); Platelet Count 311 X10^3/uL (150-400); Red Blood Cell Count 4.76 X10^6/uL (4.0-5.2); Red Cell Distribution Width 19.8 % (11.6-14.8); White Blood Cell Count 6.8 X10^3/uL (4.5-11.0)
[2019-07-29 10:48] LABS: Alanine Aminotransferase 13 IU/L (<35); Albumin 4.3 g/dL (3.5-5.0); Albumin Globulin Ratio 1.4 (1.0-2.8); Alkaline Phosphatase 80 U/L (38-126); Aspartate Aminotransferase 28 IU/L (14-36); BUN Creatinine Ratio 15.6 (6-22); Bilirubin Total 0.5 mg/dL (0.2-1.3); Blood Urea Nitrogen 14 mg/dL (7-17); Calcium 9.5 mg/dL (8.4-10.2); Carbon Dioxide 28 mmol/L (22-32); Chloride 102 mmol/L (98-107); Estimated Glomerular Filt Rate > 60.0 mL/min (>60); Globulin 3.1 g/dL (1.7-4.1); Glucose 88 mg/dL (80-110); HEMOLYSIS 17 (0-50); Potassium 4.7 mmol/L (3.4-5.1); Sodium 140 mmol/L (137-145); Total Protein 7.4 g/dL (6.3-8.2)
== END ==
PROVIDERS: PCP Family Medicine; Referring Provider Internal Medicine Hematology & Oncology; Visit Provider Internal Medicine Hematology & Oncology
DX: D45 Polycythemia vera (principal)
CPT/HCPCS: 80053; 85025; 99195

== ENCOUNTER → 2019-12-03 09:54 | Outpatient (CLI) | payer MEDICARE, OTHER, SELFPAY ==
[2019-12-03 10:53] LABS: 585 Gram Check PASS; Zero Check Sebra Scale PASS
[2019-12-03 10:54] LABS: Dizziness NO; Postdiastolic BP 86; Postsystolic BP 135; Prediastolic 81; Presystolic 118; Pulse 69; Site of phlebotomy LAC; Swelling NO; Therapeutic Phleb Comment NO COMMENT
== END ==
PROVIDERS: PCP Nurse Practitioner Family; Referring Provider Internal Medicine; Visit Provider Internal Medicine
DX: D45 Polycythemia vera (principal)
CPT/HCPCS: 99195

== ENCOUNTER → 2020-03-14 10:30 | Outpatient (CLI) | payer MEDICARE, OTHER, SELFPAY ==
[2020-03-14 12:08] LABS: 585 Gram Check PASS; Dizziness N; Postdiastolic BP 78; Postsystolic BP 118; Prediastolic 86; Presystolic 139; Pulse 64; Site of phlebotomy RAC; Swelling N; Zero Check Sebra Scale PASS
[2020-03-14 12:09] LABS: Therapeutic Phleb Comment NO COMMENT
== END ==
PROVIDERS: PCP Nurse Practitioner Family; Referring Provider Internal Medicine; Visit Provider Internal Medicine
DX: D45 Polycythemia vera (principal)
CPT/HCPCS: 99195

== ENCOUNTER → 2020-05-18 07:47 | Outpatient (CLI) | payer MEDICARE, OTHER, SELFPAY ==
[2020-05-18 08:07] LABS: Hematocrit 44.6 % (36-46); Hemoglobin 13.8 g/dL (12.0-16.0)
== END ==
PROVIDERS: PCP Internal Medicine; Referring Provider Internal Medicine; Visit Provider Internal Medicine
DX: D45 Polycythemia vera (principal)
CPT/HCPCS: 36415; 85014; 85018

== ENCOUNTER → 2020-06-13 11:49 | Outpatient (CLI) | payer MEDICARE, OTHER, SELFPAY ==
[2020-06-13 12:42] LABS: 585 Gram Check PASS; Dizziness NO; Postdiastolic BP 97; Postsystolic BP 145; Prediastolic 92; Presystolic 146; Pulse 63; Site of phlebotomy LAC; Swelling NO; Therapeutic Phleb Comment NO COMMENT; Zero Check Sebra Scale PASS
== END ==
PROVIDERS: PCP Internal Medicine; Referring Provider Internal Medicine; Visit Provider Internal Medicine
DX: D45 Polycythemia vera (principal)
CPT/HCPCS: 99195

== ENCOUNTER → 2020-08-03 13:04 | Outpatient (CLI) | payer MEDICARE, OTHER, SELFPAY ==
[2020-08-03 13:56] LABS: 585 Gram Check PASS; Dizziness NO; Postdiastolic BP 100; Postsystolic BP 158; Prediastolic 101; Presystolic 166; Pulse 72; Site of phlebotomy LAC; Swelling NO; Therapeutic Phleb Comment NO COMMENT; Zero Check Sebra Scale PASS
== END ==
PROVIDERS: PCP Internal Medicine; Referring Provider Internal Medicine; Visit Provider Internal Medicine
DX: D45 Polycythemia vera (principal)
CPT/HCPCS: 99195

== ENCOUNTER → 2020-10-19 07:38 | Outpatient (CLI) | payer MEDICARE, OTHER, SELFPAY ==
[2020-10-19 08:05] LABS: Hematocrit 41.4 % (36-46); Hemoglobin 13.3 g/dL (12.0-16.0); Mean Corpuscular HGB Conc 32.2 % (30-36); Mean Corpuscular Volume 96.3 fL (80-100); Platelet Count 366 X10^3/uL (150-400); Red Cell Distribution Width 22.2 % (11.6-14.8); White Blood Cell Count 4.4 X10^3/uL (4.5-11.0)
[2020-10-19 08:39] LABS: Anisocytosis 2+; Neutrophils Absolute Manual 2992 /uL (3000-5900); Total Cells Counted 100
== END ==
PROVIDERS: PCP Internal Medicine; Referring Provider Internal Medicine; Visit Provider Internal Medicine
DX: D45 Polycythemia vera (principal)
CPT/HCPCS: 36415; 85025

== ENCOUNTER → 2020-12-20 12:25 | Outpatient (CLI) | payer MEDICARE, OTHER, SELFPAY ==
[2020-12-20 13:51] LABS: Hematocrit 41.3 % (36-46); Hemoglobin 13.5 g/dL (12.0-16.0); Mean Corpuscular HGB Conc 32.6 % (30-36); Mean Corpuscular Hemoglobin 34.9 PG (26-34); Platelet Count 418 X10^3/uL (150-400); Red Blood Cell Count 3.86 X10^6/uL (4.0-5.2); Red Cell Distribution Width 22.6 % (11.6-14.8); White Blood Cell Count 4.1 X10^3/uL (4.5-11.0)
[2020-12-20 14:15] LABS: Alanine Aminotransferase 12 IU/L (<35); Albumin 4.2 g/dL (3.5-5.0); Albumin Globulin Ratio 1.4 (1.0-2.8); Alkaline Phosphatase 77 U/L (38-126); Aspartate Aminotransferase 30 IU/L (14-36); BUN Creatinine Ratio 18.2 (6-22); Bilirubin Total 0.3 mg/dL (0.2-1.3); Blood Urea Nitrogen 16 mg/dL (7-17); Calcium 9.9 mg/dL (8.4-10.2); Carbon Dioxide 27 mmol/L (22-32); Chloride 104 mmol/L (98-107); Cholesterol 255 mg/dL (140-199); Estimated Glomerular Filt Rate > 60.0 mL/min (>60); Glucose 103 mg/dL (80-110); HDL Cholesterol 59 mg/dL (40-60); HEMOLYSIS 17 (0-50); LDL Cholesterol Calculated 140 mg/dL (<100); Potassium 4.4 mmol/L (3.4-5.1); Sodium 136 mmol/L (137-145); Total Protein 7.2 g/dL (6.3-8.2); Triglycerides 278 mg/dL (35-150)
[2020-12-20 14:25] LABS: Neutrophils Absolute Manual 2993 /uL (3000-5900); Total Cells Counted 100
[2020-12-20 14:27] LABS: Anisocytosis 2+; Macrocytosis 1+
[2020-12-20 14:45] LABS: TSH w/ Reflex to FT4 0.83 uIU/mL (0.47-4.68)
[2020-12-20 16:39] LABS: Vitamin D 25 Hydroxy (D3) 69.5 ng/mL (30.0-100.0)
== END ==
PROVIDERS: PCP Internal Medicine; Referring Provider Internal Medicine; Visit Provider Internal Medicine
DX: D45 Polycythemia vera; E78.5 Hyperlipidemia, unspecified; I10 Essential (primary) hypertension
CPT/HCPCS: 36415; 80053; 80061; 82306; 84443; 85025

== ENCOUNTER → 2021-06-27 07:47 | Outpatient (CLI) | payer MEDICARE, OTHER, SELFPAY ==
[2021-06-27 08:21] LABS: Add Manual Diff / Slide Review NO; Basophils Absolute Auto 0 /uL (0-100); Basophils Percent Auto 0.9 % (0-2); Eosinophils Absolute Auto 100 /uL (0-450); Eosinophils Percent Auto 2.6 % (2-4); Hematocrit 40.5 % (36-46); Hemoglobin 13.9 g/dL (12.0-16.0); Lymphocytes Absolute Auto 800 /uL (1100-4500); Lymphocytes Percent Auto 19.9 % (25-40); Mean Corpuscular HGB Conc 34.4 % (30-36); Mean Corpuscular Hemoglobin 39.6 PG (26-34); Monocytes Absolute Auto 200 /uL (0-900); Monocytes Percent Auto 5.2 % (3-14); Neutrophils Absolute Auto 2900 /uL (1500-7000); Neutrophils Percent Auto 71.4 % (50-75); Platelet Count 465 X10^3/uL (150-400); Red Blood Cell Count 3.52 X10^6/uL (4.0-5.2); Red Cell Distribution Width 16.1 % (11.6-14.8); White Blood Cell Count 4.1 X10^3/uL (4.5-11.0)
[2021-06-27 08:59] LABS: Anisocytosis 1+; Macrocytosis 2+
== END ==
PROVIDERS: PCP Nurse Practitioner Family; Referring Provider Nurse Practitioner; Visit Provider Nurse Practitioner
DX: D50.9 Iron deficiency anemia, unspecified (principal)
CPT/HCPCS: 36415; 85025

== ENCOUNTER → 2021-08-30 07:55 | Outpatient (CLI) | payer MEDICARE, OTHER, SELFPAY ==
[2021-08-30 09:23] LABS: Add Manual Diff / Slide Review NO; Basophils Absolute Auto 0 /uL (0-100); Basophils Percent Auto 0.9 % (0-2); Eosinophils Absolute Auto 100 /uL (0-450); Eosinophils Percent Auto 2.7 % (2-4); Hematocrit 39.9 % (36-46); Hemoglobin 13.4 g/dL (12.0-16.0); Lymphocytes Absolute Auto 1000 /uL (1100-4500); Lymphocytes Percent Auto 20.1 % (25-40); Mean Corpuscular HGB Conc 33.6 % (30-36); Mean Corpuscular Hemoglobin 38.7 PG (26-34); Mean Corpuscular Volume 115.3 fL (80-100); Monocytes Absolute Auto 300 /uL (0-900); Monocytes Percent Auto 5.9 % (3-14); Neutrophils Absolute Auto 3400 /uL (1500-7000); Neutrophils Percent Auto 70.4 % (50-75); Platelet Count 508 X10^3/uL (150-400); Red Blood Cell Count 3.46 X10^6/uL (4.0-5.2); Red Cell Distribution Width 16.4 % (11.6-14.8); White Blood Cell Count 4.8 X10^3/uL (4.5-11.0)
[2021-08-30 10:01] LABS: Macrocytosis 2+
== END ==
PROVIDERS: PCP Nurse Practitioner Family; Referring Provider Internal Medicine Medical Oncology; Visit Provider Internal Medicine Medical Oncology
DX: D50.9 Iron deficiency anemia, unspecified (principal)
CPT/HCPCS: 36415; 85025

== ENCOUNTER → 2021-11-29 10:22 | Outpatient (CLI) | payer MEDICARE, OTHER, SELFPAY ==
[2021-11-29 11:08] LABS: 585 Gram Check PASS; Dizziness NO; Postdiastolic BP 96; Postsystolic BP 137; Prediastolic 85; Presystolic 130; Pulse 67; Site of phlebotomy RAC; Swelling NO; Temperature 97.5; Therapeutic Phleb Comment NO COMMENT; Zero Check Sebra Scale PASS
== END ==
PROVIDERS: PCP Nurse Practitioner Family; Referring Provider Nurse Practitioner; Visit Provider Nurse Practitioner
DX: D50.9 Iron deficiency anemia, unspecified (principal)
CPT/HCPCS: 99195

== ENCOUNTER → 2022-01-23 07:50 | Outpatient (CLI) | payer MEDICARE, OTHER, SELFPAY ==
[2022-01-23 08:43] LABS: Add Manual Diff / Slide Review NO; Basophils Absolute Auto 0 /uL (0-100); Basophils Percent Auto 0.9 % (0-2); Eosinophils Absolute Auto 100 /uL (0-450); Eosinophils Percent Auto 2.7 % (2-4); Hematocrit 40.9 % (36-46); Hemoglobin 13.8 g/dL (12.0-16.0); Lymphocytes Absolute Auto 700 /uL (1100-4500); Lymphocytes Percent Auto 14.9 % (25-40); Mean Corpuscular HGB Conc 33.8 % (30-36); Mean Corpuscular Hemoglobin 38.6 PG (26-34); Mean Corpuscular Volume 114.3 fL (80-100); Monocytes Absolute Auto 300 /uL (0-900); Monocytes Percent Auto 6.1 % (3-14); Neutrophils Absolute Auto 3700 /uL (1500-7000); Neutrophils Percent Auto 75.4 % (50-75); Platelet Count 483 X10^3/uL (150-400); Red Blood Cell Count 3.58 X10^6/uL (4.0-5.2); Red Cell Distribution Width 16.6 % (11.6-14.8); White Blood Cell Count 4.9 X10^3/uL (4.5-11.0)
[2022-01-23 09:12] LABS: Macrocytosis 2+
== END ==
PROVIDERS: PCP Nurse Practitioner Family; Referring Provider Internal Medicine Medical Oncology; Visit Provider Internal Medicine Medical Oncology
DX: D45 Polycythemia vera (principal)
CPT/HCPCS: 36415; 85025

== ENCOUNTER → 2022-03-21 07:37 | Outpatient (CLI) | payer MEDICARE, OTHER, SELFPAY ==
[2022-03-21 09:25] LABS: Add Manual Diff / Slide Review NO; Basophils Absolute Auto 0 /uL (0-100); Basophils Percent Auto 0.9 % (0-2); Eosinophils Absolute Auto 200 /uL (0-450); Eosinophils Percent Auto 3.3 % (2-4); Hematocrit 41.4 % (36-46); Hemoglobin 13.6 g/dL (12.0-16.0); Lymphocytes Absolute Auto 800 /uL (1100-4500); Lymphocytes Percent Auto 16.8 % (25-40); Mean Corpuscular Hemoglobin 37.3 PG (26-34); Mean Corpuscular Volume 113.2 fL (80-100); Monocytes Absolute Auto 400 /uL (0-900); Monocytes Percent Auto 7.7 % (3-14); Neutrophils Absolute Auto 3300 /uL (1500-7000); Neutrophils Percent Auto 71.3 % (50-75); Platelet Count 476 X10^3/uL (150-400); Red Blood Cell Count 3.65 X10^6/uL (4.0-5.2); Red Cell Distribution Width 15.7 % (11.6-14.8); White Blood Cell Count 4.7 X10^3/uL (4.5-11.0)
[2022-03-21 09:50] LABS: Alanine Aminotransferase 25 IU/L (<35); Albumin 4.2 g/dL (3.5-5.0); Albumin Globulin Ratio 1.8 (1.0-2.8); Alkaline Phosphatase 73 U/L (38-126); Aspartate Aminotransferase 37 IU/L (14-36); BUN Creatinine Ratio 22.4 (6-22); Bilirubin Total 0.3 mg/dL (0.2-1.3); Blood Urea Nitrogen 15 mg/dL (7-17); Calcium 8.9 mg/dL (8.4-10.2); Carbon Dioxide 29 mmol/L (22-32); Chloride 100 mmol/L (98-107); Estimated Glomerular Filt Rate > 60 mL/min (>60); Globulin 2.4 g/dL (1.7-4.1); Glucose 77 mg/dL (80-110); HEMOLYSIS < 15 (0-50); Sodium 135 mmol/L (137-145); Total Protein 6.6 g/dL (6.3-8.2)
[2022-03-21 10:00] LABS: Lactate Dehydrogenase 1286 U/L (313-618)
== END ==
PROVIDERS: PCP Nurse Practitioner Family; Referring Provider Internal Medicine Medical Oncology; Visit Provider Internal Medicine Medical Oncology
DX: D45 Polycythemia vera (principal)
CPT/HCPCS: 36415; 80053; 83615; 85025

== ENCOUNTER → 2022-06-11 07:38 | Outpatient (CLI) | payer MEDICARE, OTHER, SELFPAY ==
[2022-06-11 08:29] LABS: Hematocrit 45.4 % (36-46); Hemoglobin 15.1 g/dL (12.0-16.0); Mean Corpuscular HGB Conc 33.2 % (30-36); Mean Corpuscular Hemoglobin 33.5 PG (26-34); Mean Corpuscular Volume 100.8 fL (80-100); Platelet Count 328 X10^3/uL (150-400); Red Cell Distribution Width 16.4 % (11.6-14.8); White Blood Cell Count 5.2 X10^3/uL (4.5-11.0)
[2022-06-11 08:30] LABS: Add Manual Diff / Slide Review YES
[2022-06-11 09:02] LABS: Neutrophils Absolute Manual 3640 /uL (3000-5900); Total Cells Counted 100
[2022-06-11 09:03] LABS: Macrocytosis 1+
[2022-06-11 10:17] LABS: 585 Gram Check PASS; Dizziness NO; Postdiastolic BP 74; Postsystolic BP 117; Prediastolic 75; Presystolic 109; Pulse 63; Site of phlebotomy LAC; Swelling NO; Temperature 97.7; Therapeutic Phleb Comment NO COMMENT; Zero Check Sebra Scale PASS
== END ==
PROVIDERS: PCP Nurse Practitioner Family; Referring Provider Internal Medicine Medical Oncology; Visit Provider Internal Medicine Medical Oncology
DX: D45 Polycythemia vera (principal)
CPT/HCPCS: 36415; 85007; 85025; 99195

== ENCOUNTER → 2022-07-17 09:22 | Outpatient (CLI) | payer MEDICARE, OTHER, SELFPAY ==
[2022-07-17 10:18] LABS: Hematocrit 44.7 % (36-46); Hemoglobin 14.5 g/dL (12.0-16.0)
== END ==
PROVIDERS: PCP Nurse Practitioner Family; Referring Provider Nurse Practitioner; Visit Provider Nurse Practitioner
DX: D45 Polycythemia vera (principal)
CPT/HCPCS: 85014; 85018; 99195

== ENCOUNTER → 2022-08-12 09:18 | Outpatient (CLI) | payer MEDICARE, OTHER, SELFPAY ==
[2022-08-12 10:40] LABS: Prediastolic 79; Presystolic 123; Pulse 70; Temperature 97.8
[2022-08-12 10:41] LABS: Amount Collected in g 586; Dizziness N; Postdiastolic BP 78; Postsystolic BP 107; Site of phlebotomy RCV; Swelling N; Therapeutic Phleb Comment Y
== END ==
PROVIDERS: PCP Nurse Practitioner Family; Referring Provider Nurse Practitioner; Visit Provider Nurse Practitioner
DX: D45 Polycythemia vera (principal)
CPT/HCPCS: 99195

== ENCOUNTER → 2023-07-08 10:17 | Outpatient (CLI) | payer MEDICARE, OTHER, SELFPAY ==
[2023-07-08 11:13] LABS: Hematocrit 46.9 % (36-46); Hemoglobin 15.4 g/dL (12.0-16.0)
[2023-07-08 12:45] LABS: 585 Gram Check PASS; Amount Collected in g 585 g; Amount Collected mL calc 508 mL; Patient Weight <110 lb NO; Postdiastolic BP 82 mmHg; Postsystolic BP 132 mmHg; Prediastolic 95 mmHg; Presystolic 155 mmHg; Pulse 60 bpm; Site of phlebotomy Left antecubital; Temperature 97.8; Therapeutic Phleb Consent Chec Consent signed @ reg; Therapeutic Phleb Start Time 1115; Therapeutic Phleb Stop Time 1145; Zero Check Sebra Scale PASS
== END ==
LOC: LAB 10:22
PROVIDERS: PCP Family Medicine; Referring Provider Internal Medicine Medical Oncology; Visit Provider Internal Medicine Medical Oncology
DX: D45 Polycythemia vera (principal)
CPT/HCPCS: 36415; 85014; 85018; 99195

== ENCOUNTER → 2023-08-11 07:49 | Outpatient (CLI) | payer MEDICARE, OTHER, SELFPAY ==
[2023-08-11 08:50] LABS: Hematocrit 42.2 % (36-46); Hemoglobin 14.2 g/dL (12.0-16.0); Mean Corpuscular HGB Conc 33.7 % (30-36); Mean Corpuscular Hemoglobin 36.8 PG (26-34); Mean Corpuscular Volume 109.5 fL (80-100); Platelet Count 258 X10^3/uL (150-400); Red Blood Cell Count 3.86 X10^6/uL (4.0-5.2); Red Cell Distribution Width 17.2 % (11.6-14.8); White Blood Cell Count 3.2 X10^3/uL (4.5-11.0)
[2023-08-11 08:51] LABS: Add Manual Diff / Slide Review YES
[2023-08-11 08:55] LABS: Alanine Aminotransferase 15 IU/L (<35); Albumin Globulin Ratio 1.4 (1.0-2.8); Alkaline Phosphatase 92 U/L (38-126); Aspartate Aminotransferase 27 IU/L (14-36); BUN Creatinine Ratio 26.8 (6-22); Bilirubin Total 0.6 mg/dL (0.2-1.3); Blood Urea Nitrogen 19 mg/dL (7-17); Calcium 9.4 mg/dL (8.4-10.2); Carbon Dioxide 27 mmol/L (22-32); Chloride 101 mmol/L (98-107); Estimated Glomerular Filt Rate > 60 mL/min (>60); Globulin 2.8 g/dL (1.7-4.1); Glucose 73 mg/dL (80-110); HEMOLYSIS 22 (0-50); Sodium 136 mmol/L (137-145); Total Protein 6.8 g/dL (6.3-8.2)
[2023-08-11 08:56] LABS: Potassium 4.4 mmol/L (3.4-5.1)
[2023-08-11 10:46] LABS: Macrocytosis 1+; Neutrophils Absolute Manual 2368 /uL (3000-5900); Total Cells Counted 100
== END ==
PROVIDERS: PCP Family Medicine; Referring Provider Physician Assistant Medical; Visit Provider Physician Assistant Medical
DX: D45 Polycythemia vera (principal)
CPT/HCPCS: 36415; 80053; 85007; 85025

== ENCOUNTER → 2023-09-17 08:55 | Outpatient (CLI) | payer MEDICARE, OTHER, SELFPAY ==
[2023-09-17 09:28] LABS: Add Manual Diff / Slide Review NO; Basophils Absolute Auto 0 /uL (0-100); Basophils Percent Auto 0.8 % (0-2); Eosinophils Absolute Auto 100 /uL (0-450); Eosinophils Percent Auto 1.7 % (2-4); Hematocrit 38.4 % (36-46); Hemoglobin 13.1 g/dL (12.0-16.0); Lymphocytes Absolute Auto 800 /uL (1100-4500); Lymphocytes Percent Auto 18.2 % (25-40); Mean Corpuscular Hemoglobin 38.6 PG (26-34); Mean Corpuscular Volume 113.6 fL (80-100); Monocytes Absolute Auto 300 /uL (0-900); Neutrophils Absolute Auto 3100 /uL (1500-7000); Neutrophils Percent Auto 72.3 % (50-75); Platelet Count 295 X10^3/uL (150-400); Red Blood Cell Count 3.38 X10^6/uL (4.0-5.2); Red Cell Distribution Width 19.8 % (11.6-14.8); White Blood Cell Count 4.3 X10^3/uL (4.5-11.0)
[2023-09-17 09:44] LABS: Macrocytosis 2+
[2023-09-17 09:52] LABS: Alanine Aminotransferase 16 IU/L (<35); Albumin Globulin Ratio 1.5 (1.0-2.8); Alkaline Phosphatase 83 U/L (38-126); Aspartate Aminotransferase 27 IU/L (14-36); BUN Creatinine Ratio 16.4 (6-22); Bilirubin Total 0.7 mg/dL (0.2-1.3); Blood Urea Nitrogen 12 mg/dL (7-17); Calcium 9.4 mg/dL (8.4-10.2); Carbon Dioxide 28 mmol/L (22-32); Chloride 103 mmol/L (98-107); Estimated Glomerular Filt Rate > 60 mL/min (>60); Globulin 2.7 g/dL (1.7-4.1); Glucose 98 mg/dL (80-110); HEMOLYSIS < 15 (0-50); Potassium 4.2 mmol/L (3.4-5.1); Sodium 135 mmol/L (137-145); Total Protein 6.7 g/dL (6.3-8.2)
== END ==
PROVIDERS: PCP Internal Medicine; Referring Provider Physician Assistant Medical; Visit Provider Physician Assistant Medical
DX: D45 Polycythemia vera (principal)
CPT/HCPCS: 36415; 80053; 85025

== ENCOUNTER → 2023-10-15 11:35 | Outpatient (CLI) | payer MEDICARE, OTHER, SELFPAY ==
[2023-10-15 12:38] LABS: Add Manual Diff / Slide Review NO; Basophils Absolute Auto 0 /uL (0-100); Basophils Percent Auto 0.5 % (0-2); Eosinophils Absolute Auto 100 /uL (0-450); Eosinophils Percent Auto 1.7 % (2-4); Hematocrit 34.5 % (36-46); Hemoglobin 11.8 g/dL (12.0-16.0); Lymphocytes Absolute Auto 800 /uL (1100-4500); Lymphocytes Percent Auto 21.7 % (25-40); Mean Corpuscular HGB Conc 34.3 % (30-36); Mean Corpuscular Hemoglobin 39.8 PG (26-34); Monocytes Absolute Auto 300 /uL (0-900); Monocytes Percent Auto 6.8 % (3-14); Neutrophils Absolute Auto 2600 /uL (1500-7000); Neutrophils Percent Auto 69.3 % (50-75); Platelet Count 308 X10^3/uL (150-400); Red Blood Cell Count 2.97 X10^6/uL (4.0-5.2); Red Cell Distribution Width 19.1 % (11.6-14.8); White Blood Cell Count 3.8 X10^3/uL (4.5-11.0)
[2023-10-15 12:49] LABS: Anisocytosis 2+; Macrocytosis 2+
[2023-10-15 13:19] LABS: Alanine Aminotransferase 15 IU/L (<35); Albumin 4.4 g/dL (3.5-5.0); Albumin Globulin Ratio 1.7 (1.0-2.8); Alkaline Phosphatase 80 U/L (38-126); Aspartate Aminotransferase 27 IU/L (14-36); BUN Creatinine Ratio 24.6 (6-22); Bilirubin Total 0.6 mg/dL (0.2-1.3); Blood Urea Nitrogen 16 mg/dL (7-17); Calcium 9.5 mg/dL (8.4-10.2); Carbon Dioxide 25 mmol/L (22-32); Chloride 106 mmol/L (98-107); Estimated Glomerular Filt Rate > 60 mL/min (>60); Globulin 2.6 g/dL (1.7-4.1); Glucose 86 mg/dL (80-110); HEMOLYSIS < 15 (0-50); Potassium 4.1 mmol/L (3.4-5.1); Sodium 136 mmol/L (137-145)
== END ==
PROVIDERS: Physician Assistant Medical; PCP Internal Medicine; Referring Provider Internal Medicine; Visit Provider Internal Medicine
DX: D45 Polycythemia vera (principal)
CPT/HCPCS: 36415; 80053; 85025

== ENCOUNTER → 2023-10-30 11:05 | Outpatient (CLI) | payer MEDICARE, OTHER, SELFPAY ==
[2023-10-30 12:43] LABS: Add Manual Diff / Slide Review NO; Basophils Absolute Auto 0 /uL (0-100); Basophils Percent Auto 0.5 % (0-2); Eosinophils Absolute Auto 0 /uL (0-450); Eosinophils Percent Auto 0.8 % (2-4); Hematocrit 33.5 % (36-46); Hemoglobin 11.5 g/dL (12.0-16.0); Lymphocytes Absolute Auto 600 /uL (1100-4500); Lymphocytes Percent Auto 18.7 % (25-40); Mean Corpuscular HGB Conc 34.4 % (30-36); Mean Corpuscular Volume 118.9 fL (80-100); Monocytes Absolute Auto 200 /uL (0-900); Monocytes Percent Auto 6.4 % (3-14); Neutrophils Absolute Auto 2400 /uL (1500-7000); Neutrophils Percent Auto 73.6 % (50-75); Platelet Count 194 X10^3/uL (150-400); Red Blood Cell Count 2.81 X10^6/uL (4.0-5.2); Red Cell Distribution Width 17.5 % (11.6-14.8); White Blood Cell Count 3.3 X10^3/uL (4.5-11.0)
[2023-10-30 12:59] LABS: Anisocytosis 1+; Macrocytosis 3+
[2023-10-30 20:55] LABS: Alanine Aminotransferase 13 IU/L (<35); Albumin 4.4 g/dL (3.5-5.0); Albumin Globulin Ratio 1.7 (1.0-2.8); Alkaline Phosphatase 76 U/L (38-126); Aspartate Aminotransferase 34 IU/L (14-36); BUN Creatinine Ratio 20.3 (6-22); Bilirubin Total 0.8 mg/dL (0.2-1.3); Blood Urea Nitrogen 15 mg/dL (7-17); Calcium 9.3 mg/dL (8.4-10.2); Carbon Dioxide 27 mmol/L (22-32); Chloride 104 mmol/L (98-107); Estimated Glomerular Filt Rate > 60 mL/min (>60); Globulin 2.6 g/dL (1.7-4.1); Glucose 118 mg/dL (80-110); HEMOLYSIS < 15 (0-50); Potassium 4.3 mmol/L (3.4-5.1); Sodium 137 mmol/L (137-145)
== END ==
PROVIDERS: PCP Internal Medicine; Referring Provider Physician Assistant Medical; Visit Provider Physician Assistant Medical
DX: D45 Polycythemia vera (principal)
CPT/HCPCS: 36415; 80053; 85025

== ENCOUNTER → 2023-11-05 08:53 | Outpatient (CLI) | payer MEDICARE, OTHER, SELFPAY ==
[2023-11-05 10:46] LABS: Add Manual Diff / Slide Review NO; Basophils Absolute Auto 0 /uL (0-100); Basophils Percent Auto 0.7 % (0-2); Eosinophils Absolute Auto 0 /uL (0-450); Eosinophils Percent Auto 1.6 % (2-4); Hematocrit 31.4 % (36-46); Hemoglobin 10.9 g/dL (12.0-16.0); Lymphocytes Absolute Auto 700 /uL (1100-4500); Lymphocytes Percent Auto 22.7 % (25-40); Mean Corpuscular HGB Conc 34.7 % (30-36); Mean Corpuscular Hemoglobin 41.3 PG (26-34); Mean Corpuscular Volume 119.2 fL (80-100); Monocytes Absolute Auto 200 /uL (0-900); Monocytes Percent Auto 7.5 % (3-14); Neutrophils Absolute Auto 2100 /uL (1500-7000); Neutrophils Percent Auto 67.5 % (50-75); Platelet Count 229 X10^3/uL (150-400); Red Blood Cell Count 2.64 X10^6/uL (4.0-5.2); Red Cell Distribution Width 16.7 % (11.6-14.8); White Blood Cell Count 3.1 X10^3/uL (4.5-11.0)
[2023-11-05 11:17] LABS: Macrocytosis 2+
[2023-11-05 11:22] LABS: Alanine Aminotransferase 13 IU/L (<35); Albumin 4.2 g/dL (3.5-5.0); Albumin Globulin Ratio 1.9 (1.0-2.8); Alkaline Phosphatase 76 U/L (38-126); Aspartate Aminotransferase 27 IU/L (14-36); BUN Creatinine Ratio 21.6 (6-22); Bilirubin Total 0.6 mg/dL (0.2-1.3); Blood Urea Nitrogen 16 mg/dL (7-17); Carbon Dioxide 27 mmol/L (22-32); Chloride 105 mmol/L (98-107); Estimated Glomerular Filt Rate > 60 mL/min (>60); Globulin 2.2 g/dL (1.7-4.1); Glucose 87 mg/dL (80-110); HEMOLYSIS < 15 (0-50); Potassium 4.7 mmol/L (3.4-5.1); Sodium 136 mmol/L (137-145); Total Protein 6.4 g/dL (6.3-8.2)
== END ==
PROVIDERS: PCP Internal Medicine; Referring Provider Physician Assistant Medical; Visit Provider Physician Assistant Medical
DX: D45 Polycythemia vera (principal)
CPT/HCPCS: 36415; 80053; 85025

== ENCOUNTER → 2023-11-13 07:38 | Outpatient (CLI) | payer MEDICARE, OTHER, SELFPAY ==
[2023-11-13 08:24] LABS: Add Manual Diff / Slide Review SLIDE REVIEW; Basophils Absolute Auto 0 /uL (0-100); Eosinophils Absolute Auto 100 /uL (0-450); Eosinophils Percent Auto 1.9 % (2-4); Hematocrit 30.6 % (36-46); Hemoglobin 10.7 g/dL (12.0-16.0); Lymphocytes Absolute Auto 800 /uL (1100-4500); Lymphocytes Percent Auto 24.5 % (25-40); Mean Corpuscular Hemoglobin 41.6 PG (26-34); Mean Corpuscular Volume 118.7 fL (80-100); Monocytes Absolute Auto 300 /uL (0-900); Monocytes Percent Auto 8.5 % (3-14); Neutrophils Absolute Auto 2200 /uL (1500-7000); Neutrophils Percent Auto 64.1 % (50-75); Platelet Count 321 X10^3/uL (150-400); Red Blood Cell Count 2.58 X10^6/uL (4.0-5.2); Red Cell Distribution Width 15.8 % (11.6-14.8); White Blood Cell Count 3.4 X10^3/uL (4.5-11.0)
[2023-11-13 09:31] LABS: Alanine Aminotransferase 13 IU/L (<35); Albumin Globulin Ratio 1.9 (1.0-2.8); Alkaline Phosphatase 74 U/L (38-126); Aspartate Aminotransferase 25 IU/L (14-36); BUN Creatinine Ratio 21.2 (6-22); Bilirubin Total 0.6 mg/dL (0.2-1.3); Blood Urea Nitrogen 14 mg/dL (7-17); Calcium 8.8 mg/dL (8.4-10.2); Carbon Dioxide 28 mmol/L (22-32); Chloride 104 mmol/L (98-107); Estimated Glomerular Filt Rate > 60 mL/min (>60); Globulin 2.1 g/dL (1.7-4.1); Glucose 88 mg/dL (80-110); HEMOLYSIS < 15 (0-50); Potassium 4.7 mmol/L (3.4-5.1); Sodium 136 mmol/L (137-145); Total Protein 6.1 g/dL (6.3-8.2)
[2023-11-13 09:54] LABS: Macrocytosis 1+
== END ==
PROVIDERS: PCP Internal Medicine; Referring Provider Physician Assistant Medical; Visit Provider Physician Assistant Medical
DX: D45 Polycythemia vera (principal)
CPT/HCPCS: 36415; 80053; 85025

== ENCOUNTER → 2023-11-20 07:01 | Outpatient (CLI) | payer MEDICARE, OTHER, SELFPAY ==
[2023-11-20 07:58] LABS: Add Manual Diff / Slide Review NO; Basophils Absolute Auto 0 /uL (0-100); Basophils Percent Auto 0.9 % (0-2); Eosinophils Absolute Auto 100 /uL (0-450); Eosinophils Percent Auto 1.9 % (2-4); Hematocrit 33.4 % (36-46); Hemoglobin 11.6 g/dL (12.0-16.0); Lymphocytes Absolute Auto 800 /uL (1100-4500); Lymphocytes Percent Auto 22.3 % (25-40); Mean Corpuscular HGB Conc 34.6 % (30-36); Mean Corpuscular Hemoglobin 41.7 PG (26-34); Mean Corpuscular Volume 120.4 fL (80-100); Monocytes Absolute Auto 300 /uL (0-900); Monocytes Percent Auto 8.6 % (3-14); Neutrophils Absolute Auto 2300 /uL (1500-7000); Neutrophils Percent Auto 66.3 % (50-75); Platelet Count 301 X10^3/uL (150-400); Red Blood Cell Count 2.78 X10^6/uL (4.0-5.2); White Blood Cell Count 3.5 X10^3/uL (4.5-11.0)
[2023-11-20 08:08] LABS: Macrocytosis 2+
[2023-11-20 08:25] LABS: Alanine Aminotransferase 14 IU/L (<35); Albumin 4.2 g/dL (3.5-5.0); Albumin Globulin Ratio 1.8 (1.0-2.8); Alkaline Phosphatase 70 U/L (38-126); Aspartate Aminotransferase 28 IU/L (14-36); BUN Creatinine Ratio 26.6 (6-22); Bilirubin Total 0.8 mg/dL (0.2-1.3); Blood Urea Nitrogen 17 mg/dL (7-17); Carbon Dioxide 26 mmol/L (22-32); Chloride 105 mmol/L (98-107); Estimated Glomerular Filt Rate > 60 mL/min (>60); Globulin 2.3 g/dL (1.7-4.1); Glucose 89 mg/dL (80-110); HEMOLYSIS 22 (0-50); Potassium 4.8 mmol/L (3.4-5.1); Sodium 136 mmol/L (137-145); Total Protein 6.5 g/dL (6.3-8.2)
== END ==
PROVIDERS: PCP Internal Medicine; Referring Provider Physician Assistant Medical; Visit Provider Physician Assistant Medical
DX: D45 Polycythemia vera (principal)
CPT/HCPCS: 36415; 80053; 85025

== ENCOUNTER → 2023-11-27 07:01 | Outpatient (CLI) | payer MEDICARE, OTHER, SELFPAY ==
[2023-11-27 08:20] LABS: Add Manual Diff / Slide Review NO; Basophils Absolute Auto 0 /uL (0-100); Basophils Percent Auto 1.1 % (0-2); Eosinophils Absolute Auto 100 /uL (0-450); Eosinophils Percent Auto 2.1 % (2-4); Hematocrit 34.9 % (36-46); Hemoglobin 11.9 g/dL (12.0-16.0); Lymphocytes Absolute Auto 900 /uL (1100-4500); Lymphocytes Percent Auto 22.6 % (25-40); Mean Corpuscular HGB Conc 34.1 % (30-36); Mean Corpuscular Hemoglobin 40.8 PG (26-34); Mean Corpuscular Volume 119.6 fL (80-100); Monocytes Absolute Auto 300 /uL (0-900); Neutrophils Absolute Auto 2600 /uL (1500-7000); Neutrophils Percent Auto 66.2 % (50-75); Platelet Count 273 X10^3/uL (150-400); Red Blood Cell Count 2.92 X10^6/uL (4.0-5.2); Red Cell Distribution Width 14.5 % (11.6-14.8); White Blood Cell Count 3.9 X10^3/uL (4.5-11.0)
[2023-11-27 08:42] LABS: Alanine Aminotransferase 14 IU/L (<35); Albumin 4.2 g/dL (3.5-5.0); Albumin Globulin Ratio 1.8 (1.0-2.8); Alkaline Phosphatase 82 U/L (38-126); Aspartate Aminotransferase 27 IU/L (14-36); BUN Creatinine Ratio 22.7 (6-22); Bilirubin Total 0.7 mg/dL (0.2-1.3); Blood Urea Nitrogen 15 mg/dL (7-17); Calcium 9.1 mg/dL (8.4-10.2); Carbon Dioxide 26 mmol/L (22-32); Chloride 106 mmol/L (98-107); Estimated Glomerular Filt Rate > 60 mL/min (>60); Globulin 2.3 g/dL (1.7-4.1); Glucose 96 mg/dL (80-110); HEMOLYSIS < 15 (0-50); Potassium 4.5 mmol/L (3.4-5.1); Sodium 137 mmol/L (137-145); Total Protein 6.5 g/dL (6.3-8.2)
[2023-11-27 08:44] LABS: Anisocytosis 1+
== END ==
PROVIDERS: PCP Internal Medicine; Referring Provider Physician Assistant Medical; Visit Provider Physician Assistant Medical
DX: D45 Polycythemia vera (principal)
CPT/HCPCS: 36415; 80053; 85025

== ENCOUNTER → 2023-12-24 07:59 | Outpatient (CLI) | payer MEDICARE, OTHER, SELFPAY ==
[2023-12-24 09:43] LABS: Add Manual Diff / Slide Review NO; Basophils Absolute Auto 0 /uL (0-100); Eosinophils Absolute Auto 100 /uL (0-450); Hematocrit 37.3 % (36-46); Hemoglobin 12.6 g/dL (12.0-16.0); Lymphocytes Absolute Auto 800 /uL (1100-4500); Lymphocytes Percent Auto 21.4 % (25-40); Mean Corpuscular HGB Conc 33.9 % (30-36); Mean Corpuscular Hemoglobin 39.8 PG (26-34); Mean Corpuscular Volume 117.6 fL (80-100); Monocytes Absolute Auto 300 /uL (0-900); Monocytes Percent Auto 7.2 % (3-14); Neutrophils Absolute Auto 2700 /uL (1500-7000); Neutrophils Percent Auto 68.4 % (50-75); Platelet Count 301 X10^3/uL (150-400); Red Blood Cell Count 3.17 X10^6/uL (4.0-5.2); Red Cell Distribution Width 14.2 % (11.6-14.8); White Blood Cell Count 3.9 X10^3/uL (4.5-11.0)
[2023-12-24 10:00] LABS: Alanine Aminotransferase 15 IU/L (<35); Albumin 4.2 g/dL (3.5-5.0); Albumin Globulin Ratio 1.6 (1.0-2.8); Alkaline Phosphatase 79 U/L (38-126); Aspartate Aminotransferase 30 IU/L (14-36); BUN Creatinine Ratio 21.9 (6-22); Bilirubin Total 0.7 mg/dL (0.2-1.3); Blood Urea Nitrogen 16 mg/dL (7-17); Calcium 9.3 mg/dL (8.4-10.2); Carbon Dioxide 29 mmol/L (22-32); Chloride 104 mmol/L (98-107); Estimated Glomerular Filt Rate > 60 mL/min (>60); Globulin 2.6 g/dL (1.7-4.1); Glucose 85 mg/dL (80-110); HEMOLYSIS < 15 (0-50); Potassium 4.9 mmol/L (3.4-5.1); Sodium 137 mmol/L (137-145); Total Protein 6.8 g/dL (6.3-8.2)
[2023-12-24 10:08] LABS: Macrocytosis 2+
== END ==
PROVIDERS: PCP Internal Medicine; Referring Provider Physician Assistant Medical; Visit Provider Physician Assistant Medical
DX: D45 Polycythemia vera (principal)
CPT/HCPCS: 36415; 80053; 85025

== ENCOUNTER 2024-01-01 07:05 | Day surgery (SDC) | payer MEDICARE, OTHER, SELFPAY ==
[2024-01-01 07:29] VITALS: BP 151/82; PULSE 61; RESP 16; TEMP 36.2; O2SAT 99
[2024-01-01] MEDS: LACTATED RINGERS 1,000 ML 42 ML IV (07:38)
--- NOTE | 2024-01-01 08:01 | PM.HP.1 ---
History of Present Illness History of Present Illness Date Patient Seen: 01/01/24 Time Patient Seen: 08:01 Chief complaint: Dx Colonoscopy w/poss bx Narrative: Silvia is a 73-year-old woman who presents for colonoscopy for anemia. Please see office note from November for details. [facility] Medical History (Updated 12/01/23 @ 08:49 by Charlie Johnson MD) Paroxysmal A-fib Surgical History History of tonsillectomy Status post delivery Status post bunionectomy History of cataract removal with insertion of prosthetic lens Family History Father Hodgkin's disease Grandfather Alcoholism Grandmother Alcoholism Mother Age: 88 Cervical cancer Depression Shingles Grandfather Stroke Sister Age: 68 Depression Social History Smoking Status: Never smoker Meds Home Medications and Allergies Home Medications Medication Instructions Recorded Confirmed Type cholecalciferol (vitamin D3) 50 2,000 unit PO DAILY 10/15/17 01/01/24 History mcg (2,000 unit) capsule (Vitamin D3) magnesium 200 mg tablet 200 mg PO DAILY 10/15/17 01/01/24 History hydroxyurea 500 mg capsule 500 mg PO DAILY #30 caps 12/10/17 12/01/23 Rx aspirin 81 mg tablet,delayed 81 mg PO DAILY 12/01/23 01/01/24 History release Allergies Allergy/AdvReac Type Severity Reaction Status Date / Time No Known Drug Allergies Allergy Verified 01/01/24 07:49 Exam Vital Signs (past 8 hours): - 01/01/24 07:29 Temperature 97.2 F L Pulse Rate 61 Respiratory Rate 16 Blood Pressure 151/82 H Pulse Oximetry 99 Oxygen Delivery Method Room Air Oxygen Delivery Method Room Air Const General: healthy appearing Resp Effort & Inspection: normal respiratory effort Assessment & Plan Assessment and plan (1) Anemia: Qualifiers: Anemia type: unspecified type Qualified Code(s): D64.9 - Anemia, unspecified Status: Acute Plan We reviewed the risks and benefits of colonoscopy for anemia and she would like to proceed. Time-Based Coding :: [TOTAL MINUTES] spent with patient and on the chart (including review of chart, obtaining history, exam, reviewing outside data, placing orders, documenting exam and treatment plan, and counseling patient) on [DATE].
--- NOTE | 2024-01-01 08:25 | PM.OP.COLON ---
Operative Date/Time/Diagnoses Date of procedure: 01/01/24 Time of procedure: 08:26 Pre-op diagnosis: Anemia Post-op diagnosis: same Procedure & Clinicians Study performed: Colonoscopy Same procedure as scheduled: Yes Surgeon: Charlie Johnson Procedure Notes Procedure in detail: Surgeon: Charlie Johnson MD Anesthesia: Raeann Calderon CRNA Procedure: The patient was brought to the endoscopy suite, placed in left lateral decubitus position. The patient was connected to monitoring devices. A time-out was performed. Sedation was administered. Once the patient was adequately sedated, a digital rectal exam was performed and was normal. The scope was then inserted and advanced to the cecum where the appendiceal orifice was identified and photographed. The scope was then slowly withdrawn over greater than 6 minutes. The mucosa was thoroughly inspected. No polyps or masses were identified. There was moderate sigmoid diverticulosis. The scope was retroflexed in the rectum. No other abnormalities were seen. The scope was straightened and removed. The patient was awakened and brought to recovery. Scope withdrawal time: 8 minutes Sedation time: 13 minutes EBL: 0 Findings: Sigmoid diverticulosis Post-procedure Disposition: PACU
[2024-01-01 08:28] VITALS: BP 109/61; PULSE 52; RESP 10; TEMP 36.2; O2SAT 100
[2024-01-01 08:33] VITALS: BP 118/70; PULSE 52; RESP 14; O2SAT 99
[2024-01-01 08:39] VITALS: BP 106/67; PULSE 58; RESP 11; TEMP 36.3; O2SAT 100
[2024-01-01 08:43] VITALS: BP 133/68; PULSE 49; RESP 14; TEMP 36.3; O2SAT 100
== END 2024-01-01 08:58 | disposition home or self-care (01) ==
PROVIDERS: PCP Internal Medicine; Referring Provider Surgery; Visit Provider Surgery
PROC: 0DJD8ZZ Inspection of Lower Intestinal Tract, Via Natural or Artificial Opening Endoscopic (ICD-10-PCS; CPT 45378; principal; 2024-01-01 08:00)
DX: D64.9 Anemia, unspecified (principal); K57.30 Diverticulosis of large intestine without perforation or abscess without bleeding
CPT/HCPCS: 45378; J2704

== ENCOUNTER → 2024-01-21 07:50 | Outpatient (CLI) | payer MEDICARE, OTHER, SELFPAY ==
[2024-01-21 09:22] LABS: Add Manual Diff / Slide Review NO; Basophils Absolute Auto 0 /uL (0-100); Basophils Percent Auto 0.7 % (0-2); Eosinophils Absolute Auto 100 /uL (0-450); Eosinophils Percent Auto 1.9 % (2-4); Hematocrit 39.2 % (36-46); Hemoglobin 13.2 g/dL (12.0-16.0); Lymphocytes Absolute Auto 1000 /uL (1100-4500); Lymphocytes Percent Auto 19.6 % (25-40); Mean Corpuscular HGB Conc 33.8 % (30-36); Mean Corpuscular Volume 115.4 fL (80-100); Monocytes Absolute Auto 300 /uL (0-900); Monocytes Percent Auto 5.6 % (3-14); Neutrophils Absolute Auto 3600 /uL (1500-7000); Neutrophils Percent Auto 72.2 % (50-75); Platelet Count 351 X10^3/uL (150-400); Red Cell Distribution Width 14.4 % (11.6-14.8); White Blood Cell Count 4.9 X10^3/uL (4.5-11.0)
[2024-01-21 09:33] LABS: Anisocytosis 1+
[2024-01-21 09:34] LABS: Alanine Aminotransferase 13 IU/L (<35); Albumin 4.3 g/dL (3.5-5.0); Albumin Globulin Ratio 1.7 (1.0-2.8); Alkaline Phosphatase 81 U/L (38-126); Aspartate Aminotransferase 26 IU/L (14-36); BUN Creatinine Ratio 24.3 (6-22); Bilirubin Total 0.6 mg/dL (0.2-1.3); Blood Urea Nitrogen 17 mg/dL (7-17); Calcium 9.7 mg/dL (8.4-10.2); Carbon Dioxide 24 mmol/L (22-32); Chloride 103 mmol/L (98-107); Estimated Glomerular Filt Rate > 60 mL/min (>60); Globulin 2.5 g/dL (1.7-4.1); Glucose 86 mg/dL (80-110); HEMOLYSIS < 15 (0-50); Potassium 4.7 mmol/L (3.4-5.1); Sodium 135 mmol/L (137-145); Total Protein 6.8 g/dL (6.3-8.2)
== END ==
PROVIDERS: PCP Internal Medicine; Referring Provider Physician Assistant Medical; Visit Provider Physician Assistant Medical
DX: D45 Polycythemia vera (principal)
CPT/HCPCS: 36415; 80053; 85025

== ENCOUNTER → 2024-02-18 07:38 | Outpatient (CLI) | payer MEDICARE, OTHER, SELFPAY ==
[2024-02-18 08:51] LABS: Add Manual Diff / Slide Review NO; Basophils Absolute Auto 0 /uL (0-100); Basophils Percent Auto 0.7 % (0-2); Eosinophils Absolute Auto 100 /uL (0-450); Eosinophils Percent Auto 1.9 % (2-4); Hematocrit 38.6 % (36-46); Hemoglobin 13.1 g/dL (12.0-16.0); Lymphocytes Absolute Auto 900 /uL (1100-4500); Lymphocytes Percent Auto 19.3 % (25-40); Mean Corpuscular Hemoglobin 38.5 PG (26-34); Mean Corpuscular Volume 113.2 fL (80-100); Monocytes Absolute Auto 300 /uL (0-900); Monocytes Percent Auto 6.5 % (3-14); Neutrophils Absolute Auto 3200 /uL (1500-7000); Neutrophils Percent Auto 71.6 % (50-75); Platelet Count 336 X10^3/uL (150-400); Red Blood Cell Count 3.41 X10^6/uL (4.0-5.2); Red Cell Distribution Width 15.4 % (11.6-14.8); White Blood Cell Count 4.5 X10^3/uL (4.5-11.0)
[2024-02-18 09:02] LABS: Rouleaux 1+
[2024-02-18 09:33] LABS: Alanine Aminotransferase 13 IU/L (<35); Albumin 4.1 g/dL (3.5-5.0); Albumin Globulin Ratio 1.6 (1.0-2.8); Alkaline Phosphatase 86 U/L (38-126); Aspartate Aminotransferase 28 IU/L (14-36); BUN Creatinine Ratio 20.5 (6-22); Bilirubin Total 0.5 mg/dL (0.2-1.3); Blood Urea Nitrogen 15 mg/dL (7-17); Calcium 9.5 mg/dL (8.4-10.2); Carbon Dioxide 27 mmol/L (22-32); Chloride 102 mmol/L (98-107); Estimated Glomerular Filt Rate > 60 mL/min (>60); Globulin 2.5 g/dL (1.7-4.1); Glucose 90 mg/dL (80-110); HEMOLYSIS < 15 (0-50); Potassium 4.8 mmol/L (3.4-5.1); Sodium 136 mmol/L (137-145); Total Protein 6.6 g/dL (6.3-8.2)
== END ==
PROVIDERS: PCP Internal Medicine; Referring Provider Physician Assistant Medical; Visit Provider Physician Assistant Medical
DX: D45 Polycythemia vera (principal)
CPT/HCPCS: 36415; 80053; 85025

== ENCOUNTER → 2024-03-09 08:05 | Outpatient (CLI) | payer MEDICARE, OTHER, SELFPAY ==
[2024-03-09 10:31] LABS: Add Manual Diff / Slide Review NO; Basophils Absolute Auto 0 /uL (0-100); Basophils Percent Auto 0.8 % (0-2); Eosinophils Absolute Auto 100 /uL (0-450); Eosinophils Percent Auto 1.9 % (2-4); Hematocrit 38.7 % (36-46); Hemoglobin 13.2 g/dL (12.0-16.0); Lymphocytes Absolute Auto 900 /uL (1100-4500); Lymphocytes Percent Auto 21.6 % (25-40); Mean Corpuscular HGB Conc 34.1 % (30-36); Mean Corpuscular Hemoglobin 38.7 PG (26-34); Mean Corpuscular Volume 113.2 fL (80-100); Monocytes Absolute Auto 300 /uL (0-900); Monocytes Percent Auto 6.2 % (3-14); Neutrophils Absolute Auto 2900 /uL (1500-7000); Neutrophils Percent Auto 69.5 % (50-75); Platelet Count 296 X10^3/uL (150-400); Red Blood Cell Count 3.42 X10^6/uL (4.0-5.2); Red Cell Distribution Width 15.9 % (11.6-14.8); White Blood Cell Count 4.1 X10^3/uL (4.5-11.0)
[2024-03-09 10:51] LABS: Alanine Aminotransferase 14 IU/L (<35); Albumin 4.1 g/dL (3.5-5.0); Albumin Globulin Ratio 1.6 (1.0-2.8); Alkaline Phosphatase 83 U/L (38-126); Aspartate Aminotransferase 29 IU/L (14-36); BUN Creatinine Ratio 20.9 (6-22); Bilirubin Total 0.7 mg/dL (0.2-1.3); Blood Urea Nitrogen 14 mg/dL (7-17); Calcium 9.5 mg/dL (8.4-10.2); Carbon Dioxide 24 mmol/L (22-32); Chloride 101 mmol/L (98-107); Estimated Glomerular Filt Rate > 60 mL/min (>60); Globulin 2.5 g/dL (1.7-4.1); Glucose 79 mg/dL (80-110); HEMOLYSIS < 15 (0-50); Potassium 4.5 mmol/L (3.4-5.1); Sodium 134 mmol/L (137-145); Total Protein 6.6 g/dL (6.3-8.2)
[2024-03-09 11:25] LABS: Anisocytosis 1+
== END ==
PROVIDERS: PCP Internal Medicine; Referring Provider Physician Assistant Medical; Visit Provider Physician Assistant Medical
DX: D45 Polycythemia vera (principal)
CPT/HCPCS: 36415; 80053; 85025

== ENCOUNTER → 2024-03-26 07:14 | Outpatient (CLI) | payer MEDICARE, OTHER, SELFPAY ==
[2024-03-26 08:02] LABS: Add Manual Diff / Slide Review NO; Basophils Absolute Auto 0 /uL (0-100); Basophils Percent Auto 1.2 % (0-2); Eosinophils Absolute Auto 100 /uL (0-450); Eosinophils Percent Auto 2.6 % (2-4); Hemoglobin 12.9 g/dL (12.0-16.0); Lymphocytes Absolute Auto 1000 /uL (1100-4500); Lymphocytes Percent Auto 22.8 % (25-40); Mean Corpuscular HGB Conc 33.8 % (30-36); Mean Corpuscular Volume 112.3 fL (80-100); Monocytes Absolute Auto 300 /uL (0-900); Monocytes Percent Auto 6.5 % (3-14); Neutrophils Absolute Auto 2800 /uL (1500-7000); Neutrophils Percent Auto 66.9 % (50-75); Platelet Count 350 X10^3/uL (150-400); Red Blood Cell Count 3.39 X10^6/uL (4.0-5.2); Red Cell Distribution Width 16.5 % (11.6-14.8); White Blood Cell Count 4.2 X10^3/uL (4.5-11.0)
[2024-03-26 08:34] LABS: Anisocytosis 1+; Macrocytosis 1+
[2024-03-26 08:40] LABS: Alanine Aminotransferase 14 IU/L (<35); Albumin 3.8 g/dL (3.5-5.0); Albumin Globulin Ratio 1.4 (1.0-2.8); Alkaline Phosphatase 80 U/L (38-126); Aspartate Aminotransferase 27 IU/L (14-36); Bilirubin Total 0.5 mg/dL (0.2-1.3); Blood Urea Nitrogen 12 mg/dL (7-17); Calcium 9.5 mg/dL (8.4-10.2); Carbon Dioxide 25 mmol/L (22-32); Chloride 103 mmol/L (98-107); Estimated Glomerular Filt Rate > 60 mL/min (>60); Globulin 2.7 g/dL (1.7-4.1); Glucose 91 mg/dL (80-110); HEMOLYSIS < 15 (0-50); Potassium 4.6 mmol/L (3.4-5.1); Sodium 132 mmol/L (137-145); Total Protein 6.5 g/dL (6.3-8.2)
== END ==
PROVIDERS: PCP Internal Medicine; Referring Provider Physician Assistant Medical; Visit Provider Physician Assistant Medical
DX: D45 Polycythemia vera (principal)
CPT/HCPCS: 36415; 80053; 85025

== ENCOUNTER → 2024-04-21 07:21 | Outpatient (CLI) | payer MEDICARE, OTHER, SELFPAY ==
[2024-04-21 09:05] LABS: Add Manual Diff / Slide Review NO; Basophils Absolute Auto 100 /uL (0-100); Basophils Percent Auto 1.2 % (0-2); Eosinophils Absolute Auto 100 /uL (0-450); Eosinophils Percent Auto 2.7 % (2-4); Hematocrit 39.1 % (36-46); Hemoglobin 13.2 g/dL (12.0-16.0); Lymphocytes Absolute Auto 1000 /uL (1100-4500); Lymphocytes Percent Auto 23.3 % (25-40); Mean Corpuscular HGB Conc 33.8 % (30-36); Mean Corpuscular Hemoglobin 38.4 PG (26-34); Mean Corpuscular Volume 113.6 fL (80-100); Monocytes Absolute Auto 300 /uL (0-900); Monocytes Percent Auto 5.9 % (3-14); Neutrophils Absolute Auto 2800 /uL (1500-7000); Neutrophils Percent Auto 66.9 % (50-75); Platelet Count 337 X10^3/uL (150-400); Red Blood Cell Count 3.45 X10^6/uL (4.0-5.2); Red Cell Distribution Width 16.8 % (11.6-14.8); White Blood Cell Count 4.2 X10^3/uL (4.5-11.0)
[2024-04-21 09:36] LABS: Alanine Aminotransferase 13 IU/L (<35); Albumin 4.4 g/dL (3.5-5.0); Albumin Globulin Ratio 1.8 (1.0-2.8); Alkaline Phosphatase 75 U/L (38-126); Aspartate Aminotransferase 28 IU/L (14-36); BUN Creatinine Ratio 17.1 (6-22); Bilirubin Total 0.7 mg/dL (0.2-1.3); Blood Urea Nitrogen 12 mg/dL (7-17); Calcium 9.8 mg/dL (8.4-10.2); Carbon Dioxide 24 mmol/L (22-32); Chloride 103 mmol/L (98-107); Estimated Glomerular Filt Rate > 60 mL/min (>60); Globulin 2.5 g/dL (1.7-4.1); Glucose 88 mg/dL (80-110); HEMOLYSIS < 15 (0-50); Potassium 5.1 mmol/L (3.4-5.1); Sodium 136 mmol/L (137-145); Total Protein 6.9 g/dL (6.3-8.2)
[2024-04-21 09:44] LABS: Anisocytosis 2+; Macrocytosis 2+
== END ==
PROVIDERS: PCP Internal Medicine; Referring Provider Physician Assistant Medical; Visit Provider Physician Assistant Medical
DX: D45 Polycythemia vera (principal)
CPT/HCPCS: 36415; 80053; 85025

== ENCOUNTER → 2024-06-01 07:24 | Outpatient (CLI) | payer MEDICARE, OTHER, SELFPAY ==
[2024-06-01 08:44] LABS: Add Manual Diff / Slide Review NO; Basophils Absolute Auto 0 /uL (0-100); Basophils Percent Auto 0.7 % (0-2); Eosinophils Absolute Auto 100 /uL (0-450); Eosinophils Percent Auto 2.4 % (2-4); Hematocrit 38.7 % (36-46); Lymphocytes Absolute Auto 800 /uL (1100-4500); Lymphocytes Percent Auto 18.7 % (25-40); Mean Corpuscular HGB Conc 33.5 % (30-36); Mean Corpuscular Hemoglobin 38.7 PG (26-34); Mean Corpuscular Volume 115.3 fL (80-100); Monocytes Absolute Auto 300 /uL (0-900); Monocytes Percent Auto 8.4 % (3-14); Neutrophils Absolute Auto 2900 /uL (1500-7000); Neutrophils Percent Auto 69.8 % (50-75); Platelet Count 355 X10^3/uL (150-400); Red Blood Cell Count 3.36 X10^6/uL (4.0-5.2); Red Cell Distribution Width 16.7 % (11.6-14.8); White Blood Cell Count 4.1 X10^3/uL (4.5-11.0)
[2024-06-01 08:54] LABS: Macrocytosis 3+
[2024-06-01 09:12] LABS: Alanine Aminotransferase 15 IU/L (<35); Albumin 4.2 g/dL (3.5-5.0); Albumin Globulin Ratio 1.7 (1.0-2.8); Alkaline Phosphatase 72 U/L (38-126); Aspartate Aminotransferase 29 IU/L (14-36); BUN Creatinine Ratio 19.7 (6-22); Bilirubin Total 0.6 mg/dL (0.2-1.3); Blood Urea Nitrogen 14 mg/dL (7-17); Calcium 9.4 mg/dL (8.4-10.2); Carbon Dioxide 27 mmol/L (22-32); Chloride 102 mmol/L (98-107); Estimated Glomerular Filt Rate > 60 mL/min (>60); Globulin 2.5 g/dL (1.7-4.1); Glucose 83 mg/dL (80-110); HEMOLYSIS < 15 (0-50); Potassium 4.7 mmol/L (3.4-5.1); Sodium 134 mmol/L (137-145); Total Protein 6.7 g/dL (6.3-8.2)
== END ==
PROVIDERS: PCP Internal Medicine; Referring Provider Physician Assistant Medical; Visit Provider Physician Assistant Medical
DX: D45 Polycythemia vera (principal)
CPT/HCPCS: 36415; 80053; 85025

== ENCOUNTER → 2024-07-01 07:57 | Outpatient (CLI) | payer MEDICARE, OTHER, SELFPAY ==
[2024-07-01 08:46] LABS: Add Manual Diff / Slide Review NO; Basophils Absolute Auto 0 /uL (0-100); Basophils Percent Auto 0.9 % (0-2); Eosinophils Absolute Auto 100 /uL (0-450); Eosinophils Percent Auto 2.6 % (2-4); Hematocrit 38.9 % (36-46); Lymphocytes Absolute Auto 900 /uL (1100-4500); Lymphocytes Percent Auto 22.7 % (25-40); Mean Corpuscular HGB Conc 33.4 % (30-36); Mean Corpuscular Hemoglobin 38.3 PG (26-34); Mean Corpuscular Volume 114.9 fL (80-100); Monocytes Absolute Auto 300 /uL (0-900); Monocytes Percent Auto 6.9 % (3-14); Neutrophils Absolute Auto 2700 /uL (1500-7000); Neutrophils Percent Auto 66.9 % (50-75); Platelet Count 331 X10^3/uL (150-400); Red Blood Cell Count 3.38 X10^6/uL (4.0-5.2); Red Cell Distribution Width 16.4 % (11.6-14.8); White Blood Cell Count 4.1 X10^3/uL (4.5-11.0)
[2024-07-01 09:02] LABS: Anisocytosis 1+
[2024-07-01 09:19] LABS: Alanine Aminotransferase 17 IU/L (<35); Albumin 4.3 g/dL (3.5-5.0); Albumin Globulin Ratio 1.8 (1.0-2.8); Alkaline Phosphatase 81 U/L (38-126); Aspartate Aminotransferase 30 IU/L (14-36); BUN Creatinine Ratio 23.8 (6-22); Bilirubin Total 0.5 mg/dL (0.2-1.3); Blood Urea Nitrogen 15 mg/dL (7-17); Calcium 9.2 mg/dL (8.4-10.2); Carbon Dioxide 24 mmol/L (22-32); Chloride 104 mmol/L (98-107); Estimated Glomerular Filt Rate > 60 mL/min (>60); Globulin 2.4 g/dL (1.7-4.1); Glucose 91 mg/dL (80-110); HEMOLYSIS < 15 (0-50); Potassium 4.7 mmol/L (3.4-5.1); Sodium 135 mmol/L (137-145); Total Protein 6.7 g/dL (6.3-8.2)
== END ==
PROVIDERS: PCP Internal Medicine; Referring Provider Physician Assistant Medical; Visit Provider Physician Assistant Medical
DX: D45 Polycythemia vera (principal)
CPT/HCPCS: 36415; 80053; 85025

== ENCOUNTER → 2024-08-03 10:46 | Outpatient (CLI) | payer MEDICARE, OTHER, SELFPAY ==
[2024-08-03 12:22] LABS: Add Manual Diff / Slide Review NO; Basophils Absolute Auto 100 /uL (0-100); Basophils Percent Auto 1.2 % (0-2); Eosinophils Absolute Auto 100 /uL (0-450); Eosinophils Percent Auto 1.8 % (2-4); Hemoglobin 13.3 g/dL (12.0-16.0); Lymphocytes Absolute Auto 800 /uL (1100-4500); Lymphocytes Percent Auto 15.3 % (25-40); Mean Corpuscular HGB Conc 34.1 % (30-36); Mean Corpuscular Hemoglobin 38.7 PG (26-34); Mean Corpuscular Volume 113.4 fL (80-100); Monocytes Absolute Auto 200 /uL (0-900); Monocytes Percent Auto 4.8 % (3-14); Neutrophils Absolute Auto 3800 /uL (1500-7000); Neutrophils Percent Auto 76.9 % (50-75); Platelet Count 393 X10^3/uL (150-400); Red Blood Cell Count 3.44 X10^6/uL (4.0-5.2); White Blood Cell Count 4.9 X10^3/uL (4.5-11.0)
[2024-08-03 12:36] LABS: Anisocytosis 1+; Macrocytosis 2+
[2024-08-03 12:53] LABS: Alanine Aminotransferase 17 IU/L (<35); Albumin 4.4 g/dL (3.5-5.0); Albumin Globulin Ratio 1.8 (1.0-2.8); Alkaline Phosphatase 78 U/L (38-126); Aspartate Aminotransferase 31 IU/L (14-36); BUN Creatinine Ratio 21.9 (6-22); Bilirubin Total 0.6 mg/dL (0.2-1.3); Blood Urea Nitrogen 16 mg/dL (7-17); Calcium 9.8 mg/dL (8.4-10.2); Carbon Dioxide 25 mmol/L (22-32); Chloride 102 mmol/L (98-107); Estimated Glomerular Filt Rate > 60 mL/min (>60); Globulin 2.4 g/dL (1.7-4.1); Glucose 124 mg/dL (80-110); HEMOLYSIS < 15 (0-50); Potassium 4.7 mmol/L (3.4-5.1); Sodium 136 mmol/L (137-145); Total Protein 6.8 g/dL (6.3-8.2)
== END ==
PROVIDERS: PCP Internal Medicine; Referring Provider Physician Assistant Medical; Visit Provider Physician Assistant Medical
DX: D45 Polycythemia vera (principal)
CPT/HCPCS: 36415; 80053; 85025

== ENCOUNTER → 2024-10-06 08:05 | Outpatient (CLI) | payer MEDICARE, OTHER, SELFPAY ==
[2024-10-06 08:52] LABS: Add Manual Diff / Slide Review NO; Basophils Absolute Auto 0 /uL (0-100); Eosinophils Absolute Auto 100 /uL (0-450); Eosinophils Percent Auto 2.4 % (2-4); Hematocrit 38.9 % (36-46); Hemoglobin 13.1 g/dL (12.0-16.0); Lymphocytes Absolute Auto 800 /uL (1100-4500); Lymphocytes Percent Auto 21.4 % (25-40); Mean Corpuscular HGB Conc 33.8 % (30-36); Mean Corpuscular Hemoglobin 38.8 PG (26-34); Mean Corpuscular Volume 114.7 fL (80-100); Monocytes Absolute Auto 300 /uL (0-900); Monocytes Percent Auto 7.1 % (3-14); Neutrophils Absolute Auto 2700 /uL (1500-7000); Neutrophils Percent Auto 68.1 % (50-75); Platelet Count 406 X10^3/uL (150-400); Red Blood Cell Count 3.39 X10^6/uL (4.0-5.2); Red Cell Distribution Width 16.6 % (11.6-14.8); White Blood Cell Count 3.9 X10^3/uL (4.5-11.0)
[2024-10-06 09:04] LABS: Alanine Aminotransferase 17 IU/L (<35); Albumin 4.3 g/dL (3.5-5.0); Albumin Globulin Ratio 1.7 (1.0-2.8); Alkaline Phosphatase 68 U/L (38-126); Aspartate Aminotransferase 32 IU/L (14-36); BUN Creatinine Ratio 21.1 (6-22); Bilirubin Total 0.6 mg/dL (0.2-1.3); Blood Urea Nitrogen 15 mg/dL (7-17); Calcium 9.3 mg/dL (8.4-10.2); Carbon Dioxide 25 mmol/L (22-32); Chloride 102 mmol/L (98-107); Estimated Glomerular Filt Rate > 60 mL/min (>60); Globulin 2.5 g/dL (1.7-4.1); Glucose 90 mg/dL (70-99); HEMOLYSIS < 15 (0-50); Potassium 4.8 mmol/L (3.4-5.1); Sodium 134 mmol/L (137-145); Total Protein 6.8 g/dL (6.3-8.2)
[2024-10-06 09:09] LABS: Anisocytosis 2+; Macrocytosis 1+
== END ==
PROVIDERS: PCP Internal Medicine; Referring Provider Physician Assistant Medical; Visit Provider Physician Assistant Medical
DX: D45 Polycythemia vera (principal)
CPT/HCPCS: 36415; 80053; 85025

== ENCOUNTER → 2024-11-29 09:22 | Outpatient (CLI) | payer MEDICARE, OTHER, SELFPAY ==
[2024-11-29 10:09] LABS: Basophils Absolute Auto 0 /uL (0-100); Eosinophils Absolute Auto 100 /uL (0-450); Eosinophils Percent Auto 2.2 % (2-4); Hematocrit 39.2 % (36-46); Hemoglobin 13.3 g/dL (12.0-16.0); Lymphocytes Absolute Auto 800 /uL (1100-4500); Lymphocytes Percent Auto 20.1 % (25-40); Mean Corpuscular HGB Conc 33.9 % (30-36); Mean Corpuscular Hemoglobin 38.8 PG (26-34); Mean Corpuscular Volume 114.4 fL (80-100); Monocytes Absolute Auto 200 /uL (0-900); Monocytes Percent Auto 5.8 % (3-14); Neutrophils Absolute Auto 2900 /uL (1500-7000); Neutrophils Percent Auto 70.9 % (50-75); Platelet Count 423 X10^3/uL (150-400); Red Blood Cell Count 3.42 X10^6/uL (4.0-5.2); Red Cell Distribution Width 16.5 % (11.6-14.8); White Blood Cell Count 4.1 X10^3/uL (4.5-11.0)
[2024-11-29 10:11] LABS: Add Manual Diff / Slide Review SLIDE REVIEW
[2024-11-29 10:32] LABS: Alanine Aminotransferase 14 IU/L (<35); Albumin 4.5 g/dL (3.5-5.0); Albumin Globulin Ratio 1.9 (1.0-2.8); Alkaline Phosphatase 76 U/L (38-126); Aspartate Aminotransferase 28 IU/L (14-36); BUN Creatinine Ratio 17.4 (6-22); Bilirubin Total 0.6 mg/dL (0.2-1.3); Blood Urea Nitrogen 12 mg/dL (7-17); Calcium 9.6 mg/dL (8.4-10.2); Carbon Dioxide 23 mmol/L (22-32); Chloride 104 mmol/L (98-107); Estimated Glomerular Filt Rate > 60 mL/min (>60); Globulin 2.4 g/dL (1.7-4.1); Glucose 91 mg/dL (70-99); HEMOLYSIS < 15 (0-50); Sodium 134 mmol/L (137-145); Total Protein 6.9 g/dL (6.3-8.2)
[2024-11-29 10:40] LABS: Macrocytosis 1+
== END ==
LOC: LAB 09:26
PROVIDERS: PCP Internal Medicine; Referring Provider Physician Assistant Medical; Visit Provider Physician Assistant Medical
DX: D45 Polycythemia vera (principal)
CPT/HCPCS: 36415; 80053; 85025

== ENCOUNTER → 2024-12-24 08:12 | Outpatient (CLI) | payer MEDICARE, OTHER, SELFPAY ==
[2024-12-24 08:57] LABS: Add Manual Diff / Slide Review NO; Hematocrit 38.0 % (36-46); Hemoglobin 13.0 g/dL (12.0-16.0); Lymphocytes Absolute Auto 900 /uL (1100-4500); Mean Corpuscular HGB Conc 34.3 % (30-36); Mean Corpuscular Hemoglobin 38.9 PG (26-34); Mean Corpuscular Volume 113.3 fL (80-100); Platelet Count 408 X10^3/uL (150-400)
[2024-12-24 09:34] LABS: Alanine Aminotransferase 16 IU/L (<35); Albumin 4.3 g/dL (3.5-5.0); Albumin Globulin Ratio 1.7 (1.0-2.8); Alkaline Phosphatase 85 U/L (38-126); Blood Urea Nitrogen 15 mg/dL (7-17); Calcium 9.4 mg/dL (8.4-10.2); Carbon Dioxide 25 mmol/L (22-32); Chloride 101 mmol/L (98-107); Estimated Glomerular Filt Rate > 60 mL/min (>60); Globulin 2.5 g/dL (1.7-4.1); Glucose 97 mg/dL (70-99); HEMOLYSIS < 15 (0-50); Potassium 5.0 mmol/L (3.4-5.1); Sodium 133 mmol/L (137-145); Total Protein 6.8 g/dL (6.3-8.2)
[2024-12-24 09:39] LABS: Anisocytosis 2+; Macrocytosis 2+
== END ==
PROVIDERS: PCP Internal Medicine; Referring Provider Physician Assistant; Visit Provider Physician Assistant
DX: D45 Polycythemia vera (principal)
CPT/HCPCS: 36415; 80053; 85025

== ENCOUNTER → 2025-03-23 11:08 | Outpatient (CLI) | payer MEDICARE, OTHER, SELFPAY ==
[2025-03-23 12:42] LABS: Add Manual Diff / Slide Review NO; Hematocrit 40.2 % (36-46); Hemoglobin 13.5 g/dL (12.0-16.0); Lymphocytes Absolute Auto 900 /uL (1100-4500); Mean Corpuscular HGB Conc 33.7 % (30-36); Mean Corpuscular Hemoglobin 38.4 PG (26-34); Mean Corpuscular Volume 113.8 fL (80-100); Platelet Count 473 X10^3/uL (150-400)
[2025-03-23 13:03] LABS: Macrocytosis 1+
[2025-03-23 13:15] LABS: Alanine Aminotransferase 14 IU/L (<35); Albumin 4.6 g/dL (3.5-5.0); Albumin Globulin Ratio 1.7 (1.0-2.8); Alkaline Phosphatase 77 U/L (38-126); Blood Urea Nitrogen 17 mg/dL (7-17); Calcium 9.7 mg/dL (8.4-10.2); Carbon Dioxide 24 mmol/L (22-32); Chloride 102 mmol/L (98-107); Estimated Glomerular Filt Rate > 60 mL/min (>60); Globulin 2.7 g/dL (1.7-4.1); Glucose 89 mg/dL (70-99); HEMOLYSIS 16 (0-50); Potassium 4.9 mmol/L (3.4-5.1); Sodium 136 mmol/L (137-145); Total Protein 7.3 g/dL (6.3-8.2)
== END ==
PROVIDERS: PCP Internal Medicine; Referring Provider Physician Assistant; Visit Provider Physician Assistant Medical
DX: D45 Polycythemia vera (principal)
CPT/HCPCS: 36415; 80053; 85025